=== PATIENT | female | born 1995 | race Caucasian/White ===

== ENCOUNTER 2017-08-27 17:15 | Emergency (ER) | payer OTHER ==
[~2017-08-27] VITALS: Ht 154.9 cm; Wt 53.5 kg
[~2017-08-27 17:15] MED LIST: AMOXICILLIN PO; AZITHROMYCIN250 MG PO; FLINTSTONES1 CTB PO; PHENERGAN 25MG.25 M1 PO; PRENATAL PLUS1 TA1 PO; SEPTRA DS 800 M1 TAB PO; TOPAMAX100 MG PO; TYLENOL ES500 M1 PO; ZOFRAN ODT4 MG PO; ZOFRAN4 MG PO
--- OUTSIDE RECORDS SUMMARY | 2017-08-27 17:23 | External Medical Summary Rpt | CCD ---
Author Author , ALMAS Organization ALMAS Address Unknown Phone [email or web address] Care Team Providers Care Ethics Manager Name Role Phone TAPIA CARMEN, TAPIA Unavailable Unavailable CARMEN TAPIA CARMEN, TAPIA Unavailable Unavailable CARMEN [facility] [place]available [place], [facility] Unavailable Unavailable [place] [place] ZONIA SHERITA, Unavailable Unavailable ZONIA SHERITA ZONIA SHERITA, Unavailable Unavailable ZONIA SHERITA Rashi Tapia MD, Unavailable Unavailable Rashi Kelly MD, Unavailable Unavailable Yunior Kelly MD [facility] ADOLFO SMITH, ADOLFO Unavailable Unavailable LUIS BROWN BEAAT, BROWN BEATA Unavailable Unavailable [facility] Unavailable Unavailable [place], [facility] Unavailable Unavailable [facility], [facility] Unavailable Unavailable INC, [facility], Unavailable Unavailable [facility] Daina Peter MD, Unavailable Unavailable Daina Peter MD [facility] Unavailable Unavailable [facility], [facility] Unavailable Unavailable [facility], [facility] Israel Camargo MD, Unavailable Unavailable Israel Camargo MD [facility] Unavailable Unavailable SERVICES, [facility] ANAT SHERITA, Unavailable Unavailable ANAT SHERITA ANAT SHERITA, Unavailable Unavailable ANAT SHERITA MULBERRY WILL, Unavailable Unavailable MULBERRY WILL MULBERRY WILL, Unavailable Unavailable MULBERRY WILL ISAAK R H, Unavailable Unavailable ISAAK R H ISAAK R H, Unavailable Unavailable ISAAK R H Unavailable Unavailable [facility] PICKLESIMER JR FERNIE, Unavailable Unavailable PICKLESIMER JR FERNIE PICKLESIMER JR FERNIE, Unavailable Unavailable [facility] FERN[facility] BUSTER CARTER, BUSTER Unavailable Unavailable EMMA SCIFRES ANG, SCIFRES Unavailable Unavailable ANG SCIFRES ANG, SCIFRES Unavailable Unavailable ANG KELLY SHERITA, KELLY SHERITA Unavailable Unavailable VERÓNICA WU, VERÓNICA Unavailable Unavailable JAZMINJostin WU, VERÓNICA Unavailable Unavailable [facility] Unavailable Unavailable DEPT [facility] Unavailable Unavailable [facility] ABDIAS [facility] Unavailable Unavailable Purpose Continuity of Care Document - 06-05-2011 through 2016 Problems Code Diagnosis DOS Provider Status V7231 ROUTINE 11-16-2014 [facility] GROUP EXAMINATION 462 462 ACUTE 12-26-2013 [place] PHARYNGITIS [facility] V2549 SURVEILLANC 12-08-2013 [facility] [place] CONTRACEPT [facility] METHOD V2689 OTHER 12-08-2013 [facility] SPECIFIED [facility] PROCREATIVE [facility] DEPT MANAGEMENT VIVIENNE 15547 CONDYLOMA 11-17-2013 PICKLESIMER ACUMINATUM JR FERNIE V255 INSERTION 11-17-2013 REGINA MORALES OF IMPLANTABLE SUBDERMAL CONTRACEPTI VE 599.0 599.0 URIN 11-16-2013 [place] TRACT [facility] INFECTION Hospital NOS 5990 URINARY 11-16-2013 [place] TRA[place] [facility] INFECTION INC SITE NOT SPECIFIED 625.3 625.3 11-16-2013 [place] DYSMENORRHE [facility] 6253 DYSMENORRHE 11-16-2013 [facility] 658.01 658.01 10-07-2013 [facility] R 664.01 664.01 DEL 10-07-2013 [place] W 1 DEG [facility] V27.0 V27.0 10-07-2013 [facility] LIVEBORN 650 NORMAL 10-05-2013 VERÓNICA SALCIDOF DELIVERY 98872 OLIGOHYDRAM 10-05-2013 [place] POWELL, [facility] DELIVERED INC 04960 FIRST-DEGRE 10-05-2013 [place] Mayen PERINEAL [facility] LACERATION INC WITH DELIVERY V270 OUTCOME OF 10-05-2013 [place] DELIVERY [facility] SINGLE INC LIVEBORN 83936 THREATENED 10-04-2013 REGINA MORALES PREMATURE LABOR ANTEPARTUM 39007 OLIGOHYDRAM 09-29-2013 REGINA MORALES NIOS, ANTEPARTUM V220 SUPERVISION 09-25-2013 REGINA MORALES OF NORMAL FIRST 44476 POOR 09-10-2013 REGINA MORALES GROWTH MGMT MOTH ANTPRTM COND/COMP 94968 ABN MAT 09-09-2013 [place] GLUCOSE [facility] TOLERANCE INC COMPL PG CB/PP UNS EOC 27432 PREMATURE 07-15-2013 SEPARATION DIAGNOSTICC OF PLACENTA ENTER ANTEPARTUM V2389 SUPERVISION 07-15-2013 OF OTHER DIAGNOSTICC HIGH-RISK ENTER 82513 HEMORRHAGE 07-14-2013 REGINA MORALES FROM PLACENTA PREVIA ANTEPARTUM 51937 UNSPECIFIED 07-14-2013 ANAT ANTEPARTUM SHERITA HEMORRHAGE ANTEPARTUM 37111 SPOTTING 07-14-2013 REGINA MORALES COMP ANTEPARTUM COND/COMP 27778 ABNORMAL 07-13-2013 REGINA MORALES MATERNAL GLUCOSE TOLERANCE ANTEPARTUM 60844 UNSPEC 07-11-2013 ZONIA HEMORRHAGE SHERITA EARLY ANTEPARTUM V221 SUPERVISION 07-11-2013 ZONIA OF OTHER SHERITA NORMAL V283 ENCOUNTER 05-27-2013 REGINA MORALES ROUTINE SCREEN MALFORMATIO N ULTRASONIC 41309 HORDEOLUM 05-19-2013 [facility] 24437 OTHER 03-12-2013 REGINA MORALES SPECIFED COMPLICATIO N ANTEPARTUM 460 ACUTE 02-19-2013 MULBERRY NASOPHARYNG WILL ITIS V016 CONTACT 02-17-2013 [place] SIN WITH OR HEALTH EXPOSURE TO [place] VENEREAL DISEASES 640.03 640.03 02-16-2013 [facility] 37361 THREATENED 02-16-2013 [place] , [facility] ANTEPARTUM INC 34439 UNSPEC 02-16-2013 [facility] EMERGENCY EARLY PG SERVICES UNSPEC EPIS CARE V7242 02-10-2013 [place] SIN EXAMINATION HEALTH OR TEST CENTER POSITIVE RESULT 01031 MIGRAINE 11-15-2012 [facility] W/O EMERGENCY INTRACT W/O SERVICES STATUS MIGRAINOSUS 4720 CHRONIC 11-11-2012 ISAAK R RHINITIS H V2541 SURVEILLANC 10-07-2012 [place] SIN E PREV HEALTH PRESCRIBED CENTER CONTRACEPT PILL V720 EXAMINATION 07-31-2012 SCIFRES ANG OF EYES AND VISION 5589 OTH&UNSPEC 05-26-2012 [place] NONINFECTIO [facility] US INC GASTROENTER ITIS&COLITI S 54478 OTHER 05-26-2012 [facility] [facility] FATIGUE INC 63621 NAUSEA WITH 05-26-2012 [place] VOMITING [facility] INC 7840 HEADACHE 05-08-2012 [facility] 18538 OTHER 04-18-2012 [facility] SPECIFIED PHYSICIANS CIRCULATORY [place] SYSTEM DISORDERS 7241 PAIN IN 04-18-2012 [facility] [address] ABDOMINAL 04-18-2012 LAB TOI PAIN, [facility] EPIGASTRIC HOLDINGS 7242 LUMBAGO 04-17-2012 [facility] 58282 VOMITING 04-17-2012 [facility] 0340 STREPTOCOCC 02-21-2012 MULBERRY AL SORE WILL THROAT 4619 ACUTE 11-27-2011 [facility] SINUSITIS, ASSOCIATES UNSPECIFIED 84147 NAUSEA 09-13-2011 [place] ALONE [facility] INC 2662 OTHER 06-05-2011 [facility] S V2509 OT GENERAL 06-05-2011 [facility] CNSL&ADVICE CENTER CONTRACEPT MANAGEMENT Allergies, Adverse Reactions, Alerts Type Drug Allergy Adverse Reaction to Substance Substance Reaction Severity NO KNOWN DRUG Unknown Unknown ALLERGIES Medications Na ND Rx Da Fi Fi Am Da Di Ph RX Ph St me C No te ll ll ou ys ag ar # ys at rm s nt no ma ic us Or Da si cy ia de te s n re d Sa 63 01 0 No li 80 -1 ne 70 3- Lo 10 20 ng Fl 07 14 er us 5 h Ac 10 ti ML ve Sy ri ng e IN 51 01 0 No DO 07 -1 ME 90 3- Lo TH 19 20 ng AC 02 14 er IN 0 Ac 25 ti ve MG CA PS UL E RICHARDSON 51 01 0 No LF 07 -1 AM 90 3- Lo ET 12 20 ng HO 82 14 er XA 0 ZO Ac LE ti -T ve MP DS TA BL ET DE 00 12 0 No XT 40 -0 RO 97 2- Lo SE 92 20 ng 90 13 er 5% 9 -L Ac R ti IV ve SO DAVDI TI ON [place] [address] 40 -0 AT 97 2- Lo ED 95 20 ng 30 13 er RI 9 NG Ac ER ti S ve IN JE CT IO N PI 11 12 0 No TO 11 -0 CI 11 2- Lo N 11 20 ng 30 13 13 er 3 UN Ac IT ti S/ ve LR 50 0M L IV PI 11 12 0 No TO 11 -0 CI 11 2- Lo N 11 20 ng 30 13 13 er 3 UN Ac IT ti S/ ve LR 50 0M L IV TY 50 12 0 No LE 58 -0 NO 00 2- Lo L 45 20 ng EX 10 13 er -S 3 TR Ac ti 50 ve [address] ET ON 00 12 0 No DA 64 -0 NS 16 2- Lo ET 08 20 ng RO 02 13 er N 5 HC Ac L ti 4 ve MG /2 ML AL DE 63 12 2 No RM 02 -0 OP 98 2- Lo [place] [address] 40 13 er 1 SP Ac RA ti Y ve Ib 62 12 2 No up 58 -0 ro 40 2- Lo fe 74 20 ng n 60 13 er 40 1 0M Ac G ti Ta ve bl et LA 20 12 2 No NO 45 -0 LI 18 2- Lo N 71 20 ng CR 22 13 er EA 6 M Ac 56 ti GM ve OX 00 12 2 No YC 40 -0 OD 60 2- Lo ON 55 20 ng E 26 13 er HC 2 L Ac 5 ti MG ve TA BL ET A. 50 12 2 No E. 28 -0 R 93 2- Lo PA 25 20 ng DS 00 13 er 1 Ac ti ve Vital Signs 12-26-2013 23:20 Name Value Interpretat Reference Comment ion Range BP 57 mm[Hg] Diastolic BP Systolic 117 mm[Hg] Heart 91 /min Rate/Pulse O2% 96 % Respiratory 20 /min Rate 12-26-2013 22:38 Name Value Interpretat Reference Comment ion Range BP 69 mm[Hg] Diastolic BP Systolic 116 mm[Hg] Heart 99 /min Rate/Pulse O2% 96 % Respiratory 20 /min Rate 11-16-2013 22:34 Name Value Interpretat Reference Comment ion Range BP 60 mm[Hg] Diastolic BP Systolic 99 mm[Hg] Heart 68 /min Rate/Pulse O2% 100 % Respiratory 20 /min Rate 11-16-2013 21:09 Name Value Interpretat Reference Comment ion Range BP 70 mm[Hg] Diastolic BP Systolic 114 mm[Hg] Heart 90 /min Rate/Pulse O2% 99 % Respiratory 20 /min Rate 10-05-2013 10:30 Name Value Interpretat Reference Comment ion Range Weight 152 [lb_av] Measured Weight 68.947 kg Measured 02-16-2013 02:01 Name Value Interpretat Reference Comment ion Range Body 98.3 [degF] Temperature BP 59 mm[Hg] Diastolic BP Systolic 102 mm[Hg] Heart 83 /min Rate/Pulse O2% 99 % Respiratory 20 /min Rate 02-16-2013 01:07 Name Value Interpretat Reference Comment ion Range Heart 75 /min Rate/Pulse O2% 98 % Respiratory 20 /min Rate 02-16-2013 00:02 Name Value Interpretat Reference Comment ion Range BP 59 mm[Hg] Diastolic BP Systolic 102 mm[Hg] Results Labs Lab Lab Date Result Refere Interp Status Commen Order Detail nces retati t Range on STREP SCREEN (RAPID) (12-26-2013 22:05) STREP NEGATIV complet SCREEN 014 E ed (RAPID) 22:05 COMPREHENSIVE METABOLIC PANEL (11-16-2013 20:35) Glucose 86 74-106 complet 014 mg/dL ed Bld-mCn 20:35 c BUN 10 7-18 complet Bld-mCn 014 mg/dL ed c 20:35 Creat 0.7 0.6-1.0 complet SerPl-m 014 mg/dL ed Cnc 20:35 Creat 111 50-200 complet Cl 014 ML/MIN ed predict 20:35 ed SerPl C-G-vRa te GFR/BSA 108 59- complet .pred 014 ML/MIN ed SerPl 20:35 Schwart z-vRate Sodium 138 136-145 complet SerPl-s 014 mmoL/L ed Cnc 20:35 Potassi 3.7 3.5-5.1 complet um 014 mmoL/L ed SerPl-s 20:35 Cnc Chlorid 101 98-107 complet e 014 mmoL/L ed SerPl-s 20:35 Cnc CO2 28 21.0-32 complet SerPl-s 014 mmoL/L .0 ed Cnc 20:35 Calcium 8.8 8.5-10. complet 014 mg/dL 1 ed SerPl-m 20:35 Cnc Prot 7.7 6.4-8.2 complet SerPl-m 014 gm/dL ed Cnc 20:35 Albumin 3.8 3.4-5.0 complet 014 gm/dL ed SerPl-m 20:35 Cnc Globuli 3.9 1.3-3.2 complet n 014 gm/dL ed Ser-mCn 20:35 c Albumin 1.0 UNK 1.1-1.8 complet /Glob 014 ed SerPl-m 20:35 Rto Bilirub 0.2 0.2-1.0 complet 014 mg/dL ed SerPl-m 20:35 Cnc AST 15 U/L 15-37 complet SerPl-c 014 ed Cnc 20:35 ALT 24 U/L 30-65 complet SerPl-c 014 ed Cnc 20:35 ALP 96 U/L 50-136 complet SerPl-c 014 ed Cnc 20:35 CBC with AUTO DIFF (11-16-2013 20:35) WBC # 11-16- 7.3 4.5-13. complet Bld 014 K/MM3 0 ed Auto 20:35 RBC # 4.71 4.2-5.4 complet Bld 014 M/mm3 ed Auto 20:35 Hgb 12.7 12.2-16 complet Bld-mCn 014 g/dL .2 ed c 20:35 Hct Fr 38.7 % 37.0-47 complet Bld 014 .0 ed 20:35 MCV RBC 82.1 fl 82.2-97 complet 014 .8 ed 20:35 MCH RBC 26.9 pg 27-31.2 complet Qn 014 ed Auto 20:35 MEAN 32.7 31.8-35 complet CORPUSC 014 g/dl .4 ed ULAR 20:35 HGB CONC RDW RBC 16.6 % 11.5-17 complet Auto 014 .5 ed 20:35 Platele 282 142-424 complet t Bld 014 K/mm3 ed Ql 20:35 Manual MEAN 7.9 fl 7.4-10. complet PLATELE 014 4 ed T 20:35 VOLUME Granulo 45.4 % 37.0-80 complet cytes 014 .0 ed Fr Bld 20:35 Auto LYMPH % 40.5 % 10-50.0 complet 014 ed 20:35 Monocyt 8.5 % 1.7-9.3 complet es Fr 014 ed Bld 20:35 Auto Eosinop 11-16- 4.9 % 0.1-12. complet hil Fr 014 0 ed Bld 20:35 Auto Basophi 11-16-2 0.7 % 0.1-2.0 complet ls Fr 014 ed Bld 20:35 Auto Granulo 3.3 1.8-7.8 complet cytes # 014 K/mm3 ed Bld 20:35 Auto Lymphoc 11-16- 2.9 0.7-4.5 complet ytes Fr 014 K/mm3 ed Bld 20:35 Auto Monocyt 11-16-2 0.6 0.1-1.0 complet es # 014 K/mm3 ed Bld 20:35 Auto Eosinop 0.4 0.0-0.4 complet hil # 014 K/mm3 ed Bld 20:35 Auto Basophi 11-16- 0.1 0-0.2 complet ls # 014 K/MM3 ed Bld 20:35 Auto B-HCG Ur Ql (11-16-2013 20:20) B-HCG NEGATIV NEG complet Ur Ql 014 E ed 20:20 URINALYSIS/COMPLETE (11-16-2013 20:20) URINE RED YELLOW complet COLOR 014 ed 20:20 URINE CLOUDY CLEAR complet APPEARA 014 ed NCE 20:20 URINE NEGATIV NEG complet GLUCOSE 014 E ed - 20:20 DIPSTIC K URINE NEGATIV NEG complet BILIRUB 014 E ed IN - 20:20 DIPSTIC K URINE 1+ NEG complet KETONE 014 mg/dL ed 20:20 URINE 11-16- 1.020 1.005-1 complet SPECIFI 014 UNK .030 ed C 20:20 GRAVITY URINE 3+ NEG complet BLOOD 014 ed 20:20 URINE 5.0 UNK 5.0-8.5 complet PH 014 ed 20:20 URINE 3+ NEG complet PROTEIN 014 mg/dL ed - 20:20 DIPSTIC K URINE 4.0 NEG complet UROBILI 014 E.U./dL ed NOGEN - 20:20 DIPSTIC K URINE POSITIV NEG complet NITRATE 014 E ed - 20:20 DIPSTIC K URINE 2+ NEG complet LEUK 014 ed ESTERAS 20:20 E URINE TNTC 0 complet RBC 014 rbc/hpf ed 20:20 URINE 2 OCC O complet WBC 014 wbc/hpf ed 20:20 URINE 1+ O complet BACTERI 014 ed A 20:20 pH BldCo (10-05-2013 21:02) pH 7.30 7.35-7. complet BldCo 013 UNK 45 ed 21:02 URINALYSIS/COMPLETE (10-05-2013 08:39) URINE YELLOW YELLOW complet COLOR 013 ed 08:39 URINE SL CLEAR complet APPEARA 013 CLOUDY ed NCE 08:39 URINE NEGATIV NEG complet GLUCOSE 013 E ed - 08:39 DIPSTIC K URINE NEGATIV NEG complet BILIRUB 013 E ed IN - 08:39 DIPSTIC K URINE NEGATIV NEG complet KETONE 013 E mg/dL ed 08:39 URINE 1.020 1.005-1 complet SPECIFI 013 UNK .030 ed C 08:39 GRAVITY URINE NEGATIV NEG complet BLOOD 013 E ed 08:39 URINE 7.0 UNK 5.0-8.5 complet PH 013 ed 08:39 URINE NEGATIV NEG complet PROTEIN 013 E mg/dL ed - 08:39 DIPSTIC K URINE 0.2 NEG complet UROBILI 013 E.U./dL ed NOGEN - 08:39 DIPSTIC K URINE 2 NEGATIV NEG complet NITRATE 013 E ed - 08:39 DIPSTIC K URINE 2 NEGATIV NEG complet LEUK 013 E ed ESTERAS 08:39 E URINE 3-5 O complet WBC 013 wbc/hpf ed 08:39 URINE 5-10 0-5 complet SQUAMOU 013 #/hpf ed S CELLS 08:39 URINE TRACE O complet BACTERI 013 ed A 08:39 URINE 2 1+ OCC complet MUCUS 013 ed 08:39 CBC with AUTO DIFF (10-05-2013 05:30) WBC # 12-02-2 7.5 4.5-13. complet Bld 013 K/MM3 0 ed Auto 05:30 RBC # 12-02-2 4.12 4.2-5.4 complet Bld 013 M/mm3 ed Auto 05:30 Hgb 12-02-2 11.5 12.2-16 complet Bld-mCn 013 g/dL .2 ed c 05:30 Hct Fr --2 34.9 % 37.0-47 complet Bld 013 .0 ed 05:30 MCV RBC --2 84.8 fl 82.2-97 complet 013 .8 ed 05:30 MCH RBC 10-05-2 28.0 pg 27-31.2 complet Qn 013 ed Auto 05:30 MEAN 10-05-2 33.1 31.8-35 complet CORPUSC 013 g/dl .4 ed ULAR 05:30 HGB CONC RDW RBC 10-05-2 15.3 % 11.5-17 complet Auto 013 .5 ed 05:30 Platele --2 274 142-424 complet t Bld 013 K/mm3 ed Ql 05:30 Manual MEAN 10-05-2 7.7 fl 7.4-10. complet PLATELE 013 4 ed T 05:30 VOLUME Granulo 10-05-2 62.6 % 37.0-80 complet cytes 013 .0 ed Fr Bld 05:30 Auto LYMPH % -02-2 28.1 % 10-50.0 complet 013 ed 05:30 Monocyt -02-2 7.7 % 1.7-9.3 complet es Fr 013 ed Bld 05:30 Auto Eosinop -02-2 1.3 % 0.1-12. complet hil Fr 013 0 ed Bld 05:30 Auto Basophi 12-02-2 0.3 % 0.1-2.0 complet ls Fr 013 ed Bld 05:30 Auto Granulo 12-02-2 4.7 1.8-7.8 complet cytes # 013 K/mm3 ed Bld 05:30 Auto Lymphoc -02-2 2.1 0.7-4.5 complet ytes Fr 013 K/mm3 ed Bld 05:30 Auto Monocyt 12-02-2 0.6 0.1-1.0 complet es # 013 K/mm3 ed Bld 05:30 Auto Eosinop -02-2 0.1 0.0-0.4 complet hil # 013 K/mm3 ed Bld 05:30 Auto Basophi 10-05-2 0.0 0-0.2 complet ls # 013 K/MM3 ed Bld 05:30 Auto BASIC METABOLIC PANEL (02-16-2013 00:40) Glucose 02-16- 69 74-106 complet 013 mg/dL ed Bld-mCn 00:40 c BUN 02-16-2 10 7-18 complet Bld-mCn 013 mg/dL ed c 00:40 Creat 02-16-2 0.6 0.6-1.0 complet SerPl-m 013 mg/dL ed Cnc 00:40 ESTIMAT 02-16-2 106 50-200 complet ED 013 ML/MIN ed CREATIN 00:40 INE CLEARAN CE GFR 129 59- complet (ESTIMA 013 ML/MIN ed RODOLFO) 00:40 Sodium 02-16-2 137 136-145 complet SerPl-s 013 mmoL/L ed Cnc 00:40 Potassi 3.4 3.5-5.1 complet um 013 mmoL/L ed SerPl-s 00:40 Cnc Chlorid 02-16- 103 98-107 complet e 013 mmoL/L ed SerPl-s 00:40 Cnc CO2 02-16-2 28 21.0-32 complet SerPl-s 013 mmoL/L .0 ed Cnc 00:40 Calcium 02-16-2 8.5 8.5-10. complet 013 mg/dL 1 ed SerPl-m 00:40 Cnc B-HCG SerPl EIA 3rd IS-aCnc (02-16-2013 00:40) B-HCG 02-16-2 45145.9 complet SerPl 013 mIU/ML ed EIA 3rd 00:40 IS-aCnc CBC with AUTO DIFF (02-16-2013 00:40) WBC # -15-2 7.4 4.5-13. complet Bld 013 K/MM3 0 ed Auto 00:40 RBC # -15-2 4.36 4.2-5.4 complet Bld 013 M/mm3 ed Auto 00:40 Hgb 02-16-2 12.9 12.2-16 complet Bld-mCn 013 g/dL .2 ed c 00:40 Hct Fr 15-2 38.2 % 37.0-47 complet Bld 013 .0 ed 00:40 MCV RBC 15-2 87.5 fl 82.2-97 complet 013 .8 ed 00:40 MCH RBC 15-2 29.6 pg 27-31.2 complet Qn 013 ed Auto 00:40 MEAN -15-2 33.9 31.8-35 complet CORPUSC 013 g/dl .4 ed ULAR 00:40 HGB CONC RDW RBC 15-2 13.1 % 11.5-17 complet Auto 013 .5 ed 00:40 Platele -15-2 227 142-424 complet t Bld 013 K/mm3 ed Ql 00:40 Manual MEAN 15-2 7.4 fl 7.4-10. complet PLATELE 013 4 ed T 00:40 VOLUME Granulo 04-15-2 50.0 % 37.0-80 complet cytes 013 .0 ed Fr Bld 00:40 Auto LYMPH % 04-15-2 38.2 % 10-50.0 complet 013 ed 00:40 Monocyt 04-15-2 7.4 % 1.7-9.3 complet es Fr 013 ed Bld 00:40 Auto Eosinop 04-15-2 3.8 % 0.1-12. complet hil Fr 013 0 ed Bld 00:40 Auto Basophi 04-15-2 0.7 % 0.1-2.0 complet ls Fr 013 ed Bld 00:40 Auto Granulo 04-15-2 3.7 1.8-7.8 complet cytes # 013 K/mm3 ed Bld 00:40 Auto Lymphoc 04-15-2 2.8 0.7-4.5 complet ytes Fr 013 K/mm3 ed Bld 00:40 Auto Monocyt 04-15-2 0.5 0.1-1.0 complet es # 013 K/mm3 ed Bld 00:40 Auto Eosinop 04-15-2 0.3 0.0-0.4 complet hil # 013 K/mm3 ed Bld 00:40 Auto Basophi 04-15-2 0.1 0-0.2 complet ls # 013 K/MM3 ed Bld 00:40 Auto URINALYSIS/COMPLETE (02-16-2013 00:35) URINE 04-15-2 YELLOW YELLOW complet COLOR 013 ed 00:35 URINE 04-15-2 CLEAR CLEAR complet APPEARA 013 ed NCE 00:35 URINE 04-15-2 NEGATIV NEG complet GLUCOSE 013 E ed - 00:35 DIPSTIC K URINE 04-15-2 NEGATIV NEG complet BILIRUB 013 E ed IN - 00:35 DIPSTIC K URINE 04-15-2 NEGATIV NEG complet KETONE 013 E mg/dL ed 00:35 URINE 04-15-2 Greater 1.005-1 complet SPECIFI 013 than .030 ed C 00:35 or GRAVITY equal to 1.030 URINE 04-15-2 1+ NEG complet BLOOD 013 ed 00:35 URINE 04-15-2 6.0 UNK 5.0-8.5 complet PH 013 ed 00:35 URINE 04-15-2 NEGATIV NEG complet PROTEIN 013 E mg/dL ed - 00:35 DIPSTIC K URINE 04-15-2 0.2 NEG complet UROBILI 013 E.U./dL ed NOGEN - 00:35 DIPSTIC K URINE 04-15-2 NEGATIV NEG complet NITRATE 013 E ed - 00:35 DIPSTIC K URINE 04-15-2 TRACE NEG complet LEUK 013 ed ESTERAS 00:35 E URINE 04-15-2 5-10 0 complet RBC 013 rbc/hpf ed 00:35 URINE 04-15-2 3-5 O complet WBC 013 wbc/hpf ed 00:35 URINE 04-15-2 20-50 0-5 complet SQUAMOU 013 #/hpf ed S CELLS 00:35 URINE 04-15-2 TRACE O complet BACTERI 013 ed A 00:35 URINE 04-15-2 TRACE NONE complet AMORPH 013 ed SEDIMEN 00:35 T Procedures Procedure DOS Code Location Performer Comment ANTIBODY 33234 COMBINED COMBINED CHLAMYDIA 5 PHYSICIAN PHYSICIAN S LA S LA CUL 96826 COMBINED COMBINED PRSMPTV 5 PHYSICIAN PHYSICIAN PTHGNC S LA S LA ORGANISM SCRN W/COLONY ESTIMJ IADNA 56351 [facility] 4 [facility] DEPT TRACHOMAT VIVIENNE VIVIENNE IS AMPLIFIED PROBE TQ CONTRACEP A4267 [facility] TIVE 4 [facility] DEPT CONDOM VIVIENNE VIVIENNE MALE EACH IADNA 63057 [facility] NEISSERIA 4 [facility]PT GONORRHOE VIVIENNE VIVIENNE [place] [address] PICKLESIM PICKLESIM SURG 4 ER JR FERNIE ER JR FERNIE PATHOLOGY GROSS&LUIS ROSCOPIC EXAM ETONOGEST J7307 REGINA TAPIA REL 4 CARMEN CARMEN CNTRACPT IMPL SYS INCL IMPL & SPL INSJ 43426 REGINA TAPIA NON-BIODE 4 CARMEN CARMEN GRADABLE DRUG DELIVERY IMPLANT URINE 59909 REGINA TAPIA 4 CARMEN CARMEN TEST VISUAL COLOR CMPRSN METHS URINE 16976 [facility] [place] TEST INC INC VISUAL COLOR CMPRSN METHS URNLS DIP 07584 [facility] STICK/TAB INC INC LET REAGENT AUTO MICROSCOP Y CULTURE 51907 [facility] BACTERIAL 4 [facility] INC INC QUANTTATI VE COLONY COUNT URINE CULTURE 61147 [facility] BCT [facility] ISOL&PRSM INC INC PTV ID ISOLATE EA URINE BLOOD 44788 [facility] COUNT 4 [facility] COMPLETE INC INC AUTO&AUTO DIFRNTL WBC COMPREHEN 13658 [facility] SIVE [facility] METABOLIC INC INC PANEL SUSCEPTIB 40055 [facility] LTY STDY [facility] ANTIMICRB INC INC IAL MICRO/AGA R DILUTJ VAGINAL 03097 REGINA [facility] DELIVERY 3 CARMEN CARMEN ONLY W/POSTPAR KRYSTIAN CARE REPAIR OF 7569 [facility] OTHER [facility] CURRENT INC INC OBSTETRIC LACERATIO N NEURAXIAL 10122 [facility] 3 JAZMIN JAZMIN ANALG/ANE S PLND VAGINAL DELIVERY 41930 RE[facility] NONSTRESS 3 [facility] CARMEN TEST 74325 [facility] NONSTRESS 3 [facility]MEN [facility] TEST DOPPLER 47232 RE[facility] VELOCIMET 3 CARMEN CARMEN RY UMBILICAL ARTERY US PREG 90842 [facility] UTERUS 3 CARMEN CARMEN REAL TIME F/U TRNSABDL PER FETUS 57840 [facility] BIOPHYSIC 3 CARMEN CARMEN AL PROFILE W/O NON-STRES S TESTING 46631 [facility] BIOPHYSIC 3 CARMEN CARMEN AL PROFILE W/O NON-STRES S TESTING DOPPLER 44810 [facility] VELOCIMET 3 CARMEN CARMEN RY UMBILICAL ARTERY US PREG 22928 [facility] UTERUS 3 CARMEN CARMEN REAL TIME W/IMAGE DCMTN TRANSVAG DOPPLER 72144 [facility] VELOCIMET 3 CARMEN CARMEN RY UMBILICAL ARTERY 18368 [facility] BIOPHYSIC 3 CARMEN CARMEN AL PROFILE W/O NON-STRES S TESTING US PREG 05823 [facility] UTERUS 3 CARMEN CARMEN REAL TIME F/U TRNSABDL PER FETUS EVAL C/V 05154 [facility] AMNIOTIC 3 [facility] FLUID INC INC PROTEIN QUAL EA SPECIMEN 88114 [facility] NONSTRESS 3 CARMEN CARMEN TEST BLOOD 69484 [facility] COUNT 3 [facility] COMPLETE INC INC AUTO&AUTO DIFRNTL WBC URNLS DIP 69336 [facility] STICK/TAB INC INC LET REAGENT AUTO MICROSCOP Y BASIC 95029 [facility] METABOLIC 3 [facility] PANEL INC INC CALCIUM TOTAL CUL BACT 12171 COMBINED COMBINED XCPT 3 PHYSICIAN PHYSICIAN URINE S LA S LA BLOOD/STO OL AEROBIC ISOL DOPPLER 37585 [facility] VELOCIMET 3 CARMEN CARMEN RY UMBILICAL ARTERY 34259 [facility] BIOPHYSIC 3 CARMEN CARMEN AL PROFILE W/O NON-STRES S TESTING US PREG 71764 [facility] UTERUS 3 CARMEN CARMEN REAL TIME F/U TRNSABDL PER FETUS GLUCOSE 16094 [facility] TOLERANCE 3 [facility] TEST GTT INC INC [facility] 42061 ANAT DISCHARGE 3 SHERITA DAY DIAGNOSTI MANAGEMEN CCENTER T 30 MIN/< SBSQ 74162 [facility] 3 SHERITA CARE/DAY DIAGNOSTI 15 CCENTER MINUTES US PREG 99071 REGINA [facility] UTERUS 3 CARMEN CARMEN REAL TIME F/U TRNSABDL PER FETUS US PREG 61795 [facility] UTERUS 3 SHERITA SHERITA W/DETAIL BRITT 1ST GESTATION 48899 REGINA [facility] BIOPHYSIC 3 CARMEN CARMEN AL PROFILE W/O NON-STRES S TESTING GLUCOSE 74437 RE[facility] TOLERANCE 3 CARMEN CARMEN TEST GTT 3 SPECIMENS THERAPEUT 41959 [facility] IC 3 [facility] PROPHYLAC INC INC TIC/DX INJECTION SUBQ/IM THERAPEUT 89396 [facility] IC 3 [facility] PROPHYLAC INC INC TIC/DX INJECTION SUBQ/IM US PREG 02404 [facility] UTERUS 3 [facility] REAL TIME INC INC W/IMAGE DCMTN TRANSVAG 00146 [facility] NONSTRESS [facility] URNLS DIP 09392 [facility] STICK/TAB INC INC LET REAGENT AUTO MICROSCOP Y 75081 [facility] BIOPHYSIC 3 SHERITA SHERITA AL PROFILE NON-STRES S TESTING 83512 [facility] BIOPHYSIC 3 [facility] HOSP AL INC INC PROFILE W/O NON-STRES S TESTING URNLS DIP 14896 [facility] 3 [facility] STICK/TAB INC INC LET REAGENT AUTO MICROSCOP Y 39927 [facility] [place] NONSTRESS 3 [facility] TEST INC INC US PREG 88444 REGINA TAPIA UTERUS 3 CARMEN CARMEN AFTER 1ST TRIMEST 1/ GESTATION ALPHA-FET 07657 [facility] [place] OPROTEIN 3 [facility] SERUM INC INC GONADOTRO 50827 [facility] [place] PIN 3 [facility] CHORIONIC [place] [address] [facility] ESTRIOL 3 [facility] INC INC US PREG 44123 REGINA TAPIA UTERUS 3 CARMEN CARMEN REAL TIME W/IMAGE DCMTN TRANSVAG BLOOD 70585 MULBERRY MULBERRY COUNT 3 WILL WILL COMPLETE AUTO&AUTO DIFRNTL WBC IAADIADOO 71466 MULBERRY MULBERRY 3 WILL WILL STREPTOCO CCUS GROUP A URNLS DIP 90139 [facility] 3 [facility] STICK/TAB INC INC LET REAGENT AUTO MICROSCOP Y BLOOD 15980 [facility] [place] COUNT 3 [facility] COMPLETE INC INC AUTO&AUTO DIFRNTL WBC GONADOTRO 12078 [facility] [place] PIN 3 [facility] CHORIONIC INC INC QUANTITAT SELVIN BASIC 01243 [facility] METABOLIC 3 [facility] PANEL INC INC CALCIUM TOTAL URINE 00002 [facility] [place] 3 [facility] CENTER VISUAL COLOR CMPRSN METHS WET Q0111 L[facility] [place] UMAIR 3 [facility] IN[facility] PREP CENTER CENTER VAGINAL CERV/SKIN SPECIMENS IADNA 12006 LUD[facility] [place] CHLAMYDIA 3 [facility] LEGGETT TRACHOMAT IS AMPLIFIED PROBE TQ SMR PRIM 75768 LUD[facility]INA [facility] SRC WET [facility] NFCT AGT CONTRACEP A4267 [facility] [place] TIVE 3 [facility] SU[facility] CENTER CONDOM MALE EACH IADNA 96274 L[facility] [place] NEISSERIA 3 [facility] GONORRHOE AE AMPLIFIED PROBE TQ URINE 09989 [facility] 3 [facility] TEST INC INC VISUAL COLOR CMPRSN METHS THERAPEUT 41213 [facility] [place] IC 3 [facility] PROPHYLAC INC INC TIC/DX INJECTION SUBQ/IM IAADIADOO 29869 ISAAK ISAAK 3 R H R H STREPTOCO CCUS GROUP A CONTRACEP A4267 L[facility] [place] TIVE 2 [facility] CENTER CONDOM MALE EACH IADNA 49457 L[facility] [place] NEISSERIA 2 [facility] GONORRHOE AE AMPLIFIED PROBE TQ IADNA 89077 L[facility] [place] CHLAMYDIA 2 [facility] TRACHOMAT IS AMPLIFIED PROBE TQ FRAMES V2020 SCIFRES SCIFRES PURCHASES 2 ANG ANG 1 VISN V2103 SCIFRES SCIFRES PLANO 2 ANG ANG TO+/-4.00 D SPHER 0.12-2.00 D CYL EA DETERMINA 65277 SCIFRES SCIFRES TION 2 ANG ANG REFRACTIV E STATE FITTING 60829 SCIFRES SCIFRES SPECTACLE 2 ANG ANG S XCPT APHAKIA MONOFOCAL VISION V2799 SCIFRES SCIFRES ITEM OR 2 ANG ANG SERVICE MISCELLAN EOUS OPHTH 41405 SCIFRES SCIFRES MEDICAL 2 ANG ANG XM&EVAL COMPRHNSV ESTAB PT 1/> COMPREHEN 13050 L[facility] SIVE 2 [facility] [place] [address] L[facility] [place] INFUSION 2 [facility] THERAPY/P INC INC ROPHYLAXI S /DX 1ST TO 1 HR THERAPEUT 81392 [facility] [place] IC 2 [facility] INJECTION INC INC IV PUSH EACH NEW DRUG URINE 63762 [facility] 2 [facility] TEST INC INC VISUAL COLOR CMPRSN METHS BLOOD 11145 [facility] [place] COUNT 2 [facility] COMPLETE INC INC AUTO&AUTO DIFRNTL WBC URNLS DIP 34515 [facility] 2 [facility] STICK/TAB INC INC LET REAGENT AUTO MICROSCOP Y CULTURE 32534 [facility] [place] BACTERIAL 2 [facility] INC INC QUANTTATI VE COLONY COUNT URINE CULTURE 05924 COMBINED COMBINED BACTERIAL 2 PHYSICIAN PHYSICIAN S LA S LA QUANTTATI VE COLONY COUNT URINE THROMBOPL 79266 COMBINED COMBINED ASTIN 2 PHYSICIAN PHYSICIAN TIME S LA S LA PARTIAL PLASMA/[place] [address] LAB TOI LAB TOI LIPASE 2 MAGDALENA MAGDALENA [employer] COMPREHEN 58611 COMBINED COMBINED SIVE 2 PHYSICIAN PHYSICIAN [place] [address] COMBINED COMBINED AMYLASE 2 PHYSICIAN PHYSICIAN S LA S LA URNLS DIP 33413 FAMILY FAMILY 2 CARE CARE STICK/TAB ASSOCIATE ASSOCIATE LET RGNT S S NON-AUTO W/O MICRSCP PROTHROMB 71284 FAMILY FAMILY IN TIME 2 CARE FERRY TERMINAL AGENT ASSOCIATE S S BLOOD 26992 FAMILY FAMILY COUNT 2 CARE CARE COMPLETE ASSOCIATE ASSOCIATE AUTO&AUTO S S DIFRNTL WBC BLOOD 89096 ISAAK ISAAK COUNT 2 R H R H COMPLETE AUTO&AUTO DIFRNTL WBC IAADIADOO 40802 MULBERRY MULBERRY 2 WILL WILL STREPTOCO CCUS GROUP A IAADIADOO 36136 MULBERRY MULBERRY 2 WILL WILL STREPTOCO CCUS GROUP A IADNA 45586 LUDIVINA [place] NEISSERIA 1 [facility] C[facility] GONORRHOE AE AMPLIFIED PROBE TQ CONTRACEP S4993 LUDIVINA [place] TIVE 1 [facility] CENTER CONTROL IADNA 04625 LUDIVINA [place] CHLAMYDIA 1 [facility] TRACHOMAT IS AMPLIFIED PROBE TQ URINE 71304 L[facility]INA [place] 1 [facility] TEST CENTER CENTER VISUAL COLOR CMPRSN METHS REPAIR OB 75.69 Rashi Tapia MD LACERATIO N NEC Encounters Encounter Start End Date Code Location Performer Type Date PERIODIC 38989 [facility] PREVENTIV 5 5 PHYSICIAN E MED EST S GROUP PATIENT 18-39 YRS Emergency LALO Peter MD (ER) 4 22:08 4 23:21 [facility] EMERGENCY 31299 L[facility] 4 4 [facility] DEPARTMEN INC T VISIT LOW/MODER SEVERITY EMERGENCY 37462 ABDIAS AREVALO 4 4 DEPARTMEN T VISIT MODERATE SEVERITY HOSPITAL [facility] - 4 4 [facility] OUTPATIEN INC T PERIODIC 29140 [facility] HLTH DEPT HLTH DEPT PATIENT VIVIENNE VIVIENNE 18-39 YRS Emergency LALO Ludivina Camargo MD (ER) 4 20:48 4 22:[facility] OUTPATIEN INC T EMERGENCY 04072 ADOLFO CAMARGO 4 4 [facility] DEPARTMEN T VISIT HIGH/URGE NT SEVERITY EMERGENCY 36293 [facility] 4 4 [facility] DEPARTMEN INC T VISIT MODERATE SEVERITY Inpatient HARDY Tapia MD (IN) 3 04:58 3 18:22 [facility] - 3 3 [facility] INPATIENT INC OFFICE 17214 REGINA TAPIA OUTPATIEN 3 3 CARMEN CARMEN T VISIT 15 MINUTES OFFICE 82965 TAPIA TAPIA OUTPATIEN 3 3 CARMEN CARMEN T VISIT 15 MINUTES OFFICE 41189 [facility]AP[facility] REGINA OUTPATIEN 3 3 CARMEN CARMEN T VISIT 15 MINUTES HOSPITAL [facility] - 3 3 [facility] OUTPATIEN INC T OFFICE 59062 [facility] TAPIA OUTPATIEN 3 3 CARMEN CARMEN T VISIT 15 MINUTES OFFICE 20177 [facility] TAPIA OUTPATIEN 3 3 CARMEN CARMEN T VISIT 15 MINUTES OFFICE 10738 [facility] TAPIA OUTPATIEN 3 3 CARMEN CARMEN T VISIT 15 MINUTES HOSPITAL [facility] - 3 3 [facility] OUTPATIEN INC T OFFICE 70804 REGINA TAPIA OUTPATIEN 3 3 CARMEN CARMEN T VISIT 15 MINUTES HOSPITAL [facility] - 3 3 [facility]IENT [facility] OFFICE 45266 REGINA TAPIA OUTPATIEN 3 3 CARMEN CARMEN T VISIT 5 MINUTES HOSPITAL [facility] - 3 3 [facility] OUTPATIEN INC T HOSPITAL [facility] - 3 3 [facility] OUTPATIEN INC T [facility]OSPITAL [facility] - 3 3 [facility] OUTPATIEN INC T OFFICE 99654 REGINA TAPIA OUTPATIEN 3 3 CARMEN CARMEN T VISIT 15 MINUTES OFFICE 59373 REGINA TAPIA OUTPATIEN 3 3 CARMEN CARMEN T VISIT 15 MINUTES OFFICE 11323 FAMILY OUTPATIEN 3 3 CARE T VISIT ASSOCIATE 15 S MINUTES HOSPITAL [facility] - 3 3 [facility] OUTPATIEN INC T OFFICE 40649 REGINA TAPIA OUTPATIEN 3 3 CARMEN CARMEN T VISIT 15 MINUTES OFFICE 24032 REGINA TAPIA OUTPATIEN 3 3 CARMEN CARMEN T VISIT 15 MINUTES OFFICE 44808 MULBERRY MULBERRY OUTPATIEN 3 3 WILL WILL T VISIT 15 MINUTES OFFICE 70882 LUDIVINA WEAVER 3 3 [facility] T VISIT CENTER CENTER 15 MINUTES Emergency LALO Kelly MD (ER) 3 00:01 3 02:07 [facility] F. EMERGENCY 74129 LUDIV[place] 3 3 [facility] DEPARTMEN INC T VISIT MODERATE SEVERITY EMERGENCY 19076 [facility] 3 3 EMERGENCY DEPARTMEN SERVICES T VISIT HIGH/URGE NT SEVERITY HOSPITAL [facility] - 3 3 [facility] OUTPATIEN INC T OFFICE 26347 LUDIVINA WEAVER 3 3 [facility] T VISIT CENTER CENTER 25 MINUTES HOSPITAL [facility] - 3 3 [facility] OUTPATIEN INC T EMERGENCY 71433 [facility] GOINS 3 3 EMERGENCY [facility] DEPARTMEN SERVICES T VISIT HIGH/URGE NT SEVERITY EMERGENCY 21302 [facility] 3 3 [facility] DEPARTMEN INC T VISIT LOW/MODER SEVERITY OFFICE 75855 ISAAK ISAAK OUTPATIEN 3 3 R H R H T VISIT 15 MINUTES PERIODIC 38071 [facility] [place] PREVENTIV 2 2 [facility] E MED EST CENTER CENTER PATIENT 18-39 YRS OFFICE 51974 ISAAK ISAAK OUTPATIEN 2 2 R H R H T VISIT 15 MINUTES HOSPITAL [facility] - 2 2 [facility] OUTPATIEN INC T EMERGENCY 58076 ADOLFO HERNANDEZEY 2 2 [facility] LUIS DEPARTMEN T VISIT HIGH/URGE NT SEVERITY OFFICE 44194 FAMILY OUTPATIEN 2 2 CARE T VISIT ASSOCIATE 25 S MINUTES OFFICE 20562 FAMILY OUTPATIEN 2 2 CARE T VISIT ASSOCIATE 25 S MINUTES OFFICE 94983 MULBERRY MULBERRY OUTPATIEN 2 2 WILL WILL T VISIT 15 MINUTES OFFICE 23371 MULBERRY MULBERRY OUTPATIEN 2 2 WILL WILL T VISIT 15 MINUTES OFFICE 25843 FAMILY ISAAK OUTPATIEN 2 2 CARE R H T VISIT ASSOCIATE 15 S MINUTES HOSPITAL [facility] - 1 1 [facility] OUTPATIEN INC T EMERGENCY 20416 BROWN BEATA BROWN BEATA 1 1 DEPARTMEN T VISIT HIGH/URGE NT SEVERITY EMERGENCY 26851 [facility] 1 1 [facility] DEPARTMEN INC T VISIT LIMITED/M INOR PROB OFFICE 20472 LUD[facility] [place] OUTPATIEN 1 1 [facility] HEALTH T VISIT CENTER CENTER 15 MINUTES PERIODIC 69255 LUD[facility] [place] PREVENTIV 1 1 [facility] HEALTH E MED EST CENTER CENTER PATIENT 12-17YRS
--- OUTSIDE RECORDS SUMMARY | 2017-08-27 17:23 | External Medical Summary Rpt | CCD ---
Author Author , ALMAS Organization ALMAS Address Unknown Phone [email or web address] Team Providers Care Electronic Security Technician Name Role Phone TAPIA CARMEN, TAPIA Unavailable [...] ADOLFO SMITH, ADOLFO Unavailable Unavailable LUIS BROWN BEATA, BROWN BEATA Unavailable Unavailable [facility] Unavailable Unavailable [place], [facility] Unavailable Unavailable [facility]ENTER, [facility] Unavailable Unavailable INC, [facility], Unavailable Unavailable [facility] Daina Peter MD, Unavailable Unavailable Daina Peter MD [facility] Unavailable Unavailable [facility], [facility] Unavailable Unavailable [facility], [facility] Israel Camargo MD, Unavailable Unavailable Israel Camargo MD [facility] Unavailable Unavailable SERVICES, [facility] ANAT SHERITA, Unavailable Unavailable ANAT SHERITA ANAT SHERITA, Unavailable Unavailable ANAT SHERITA MULBERRY WILL, Unavailable Unavailable MULBERRY WILL MULBERRY WILL, Unavailable Unavailable MULBERRY WILL ISAAK R H, Unavailable Unavailable ISAAK R H SIAAK R H, Unavailable Unavailable [facility]K R [facility] Unavailable Unavailable [facility] PICKLESIMER JR FERNIE, Unavailable Unavailable [facility] FERNIE PICKLESIMER JR FERNIE, Unavailable Unavailable [facility] BUSTER CARTER, BUSTER Unavailable Unavailable EMMA SCIFRES ANG, SCIFRES Unavailable Unavailable ANG SCIFRES ANG, SCIFRES Unavailable Unavailable ANG KELLY SHERITA, KELLY SHERITA Unavailable Unavailable VERÓNICA WU, VERÓNICA Unavailable Unavailable JAZMINJostin WU, VERÓNICA Unavailable Unavailable JAZMIN [facility] Unavailable Unavailable DEPT [facility] VIV[facility]NE [facility] Unavailable Unavailable [facility] VIVIENNE ABDIAS LAZO Unavailable Unavailable Purpose Continuity of Care Document - 06-05-2011 through 2016 Problems Code Diagnosis DOS Provider Status [id number] ROUTINE 11-16-2014 [facility] AL GROUP EXAMINATION 462 462 ACUTE 12-26-2013 [place] PHARYNGITIS [facility] V2549 SURVEILLANC 12-08-2013 [facility] E OTH [facility] DEPT CONTRACEPT [facility] METHOD V2689 OTHER 12-08-2013 [facility] SPECIFIED [facility] PROCREATIVE [facility] DEPT MANAGEMENT VIVIENNE 20853 CONDYLOMA 11-17-2013 [facility] ACUMIN[facility] JR FERNIE V255 INSERTION 11-17-2013 REGINA MORALES OF IMPLANTABLE SUBDERMAL CONTRACEPTI VE 599.0 599.0 URIN 11-16-2013 [place] TRACT [facility] INFECTION Hospital NOS 5990 URINARY 11-16-[address] [facility] INFECTION INC SITE NOT SPECIFIED 625.3 625.3 11-16-2013 [place] DYSMENORRHE [facility] 6253 DYSMENORRHE 11-16-2013 [facility] INC 658.01 658.01 10-07-2013 [facility] R 664.01 664.01 DEL 10-07-2013 Ludivina W 1 DEG [facility] V27.0 V27.0 10-07-2013 [facility] LIVEBORN 650 NORMAL 10-05-2013 VERÓNICA SALCIDOF DELIVERY 21484 OLIGOHYDRAM 10-05-2013 [place], [facility] DELIVERED INC 20026 FIRST-DEGRE 10-05-[address] [facility] LACERATION INC WITH DELIVERY V270 OUTCOME OF 10-05-[address] [facility] SINGLE INC LIVEBORN 66238 THREATENED 10-04-2013 REGINA MORALES PREMATURE LABOR ANTEPARTUM 06970 OLIGOHYDRAM 09-29-2013 REGINA MORALES NIOS, ANTEPARTUM V220 SUPERVISION 09-25-2013 REGINA MORALES OF NORMAL FIRST 19504 POOR 09-10-2013 REGINA MORALES GROWTH MGMT MOTH ANTPRTM COND/COMP 62642 ABN MAT 09-09-2013 [facility] GLUCOSE [facility] TOLERANCE INC COMPL PG CB/PP UNS EOC 41470 PREMATURE 07-15-2013 SEPARATION DIAGNOSTICC OF [place] ENTER ANTEPARTUM V2389 SUPERVISION 07-15-2013 OF OTHER DIAGNOSTICC HIGH-RISK ENTER 83011 HEMORRHAGE 07-14-2013 REGINA MORALES FROM PLACENTA PREVIA ANTEPARTUM 80486 UNSPECIFIED 07-14-2013 ANAT ANTEPARTUM SHERITA HEMORRHAGE ANTEPARTUM 79990 SPOTTING 07-14-2013 REGINA MORALES COMP ANTEPARTUM COND/COMP 46203 ABNORMAL 07-13-2013 REGINA MORALES MATERNAL GLUCOSE TOLERANCE ANTEPARTUM 45249 UNSPEC 07-11-2013 [facility] HEMORRHAGE SHERITA EARLY ANTEPARTUM V221 SUPERVISION 07-11-2013 [facility] OF OTHER SHERITA NORMAL V283 ENCOUNTER 05-27-2013 REGINA MORALES ROUTINE SCREEN MALFORMATIO N ULTRASONIC 01132 HORDEOLUM 05-19-2013 [facility] 95795 OTHER 03-12-2013 REGINA MORALES SPECIFED COMPLICATIO N ANTEPARTUM 460 ACUTE 02-19-2013 MULBERRY NASOPHARYNG WILL ITIS V016 CONTACT 02-17-2013 L[place] SIN WITH OR HEALTH EXPOSURE TO [place] VENEREAL DISEASES 640.03 640.03 02-16-2013 [facility] 46904 THREATENED 02-16-2013 [facility] , [facility] ANTEPARTUM INC 02128 UNSPEC 02-16-2013 [facility] EMERGENCY EARLY PG SERVICES UNSPEC EPIS CARE V7242 02-10-2013 [place] SIN EXAMINATION HEALTH OR TEST CENTER POSITIVE RESULT 14247 MIGRAINE 11-15-2012 [facility] W/O EMERGENCY INTRACT W/O SERVICES STATUS MIGRAINOSUS 4720 CHRONIC 11-11-2012 ISAAK R RHINITIS H V2541 SURVEILLANC 10-07-2012 [place] SIN E PREV HEALTH PRESCRIBED CENTER CONTRACEPT PILL V720 EXAMINATION 07-31-2012 SCIFRES ANG OF EYES AND VISION 5589 OTH&UNSPEC 05-26-2012 [facility] NONINFECTIO [facility] US INC GASTROENTER ITIS&COLITI S 74566 OTHER 05-26-2012 [facility]AISE AND [facility] FATIGUE INC 22399 NAUSEA WITH 05-26-2012 [place] VOMITING [facility] INC 7840 HEADACHE 05-08-2012 [facility] 48839 OTHER 04-18-2012 COMBINED SPECIFIED PHYSICIANS CIRCULATORY LA SYSTEM DISORDERS 7241 PAIN IN 04-18-2012 [place] [address] ABDOMINAL 04-18-2012 LAB TOI PAIN, [facility] 7242 LUMBAGO 04-17-2012 [facility] 85907 VOMITING 04-17-2012 [facility] 0340 STREPTOCOCC 02-21-2012 MULBERRY AL SORE WILL THROAT 4619 ACUTE 11-27-2011 [facility] UNSPECIFIED 46555 NAUSEA 09-13-2011 [facility] ALONE [facility] INC 2662 OTHER 06-05-2011 [facility] HEALTH DEFICIENCIE CENTER S V2509 OT GENERAL 06-05-2011 [facility] HEALTH CNSL&ADVICE CENTER CONTRACEPT MANAGEMENT [...] -L Ac R ti IV ve SO DAVID TI ON LA 00 12 0 No [...] EIA 3rd IS-aCnc (02-16-2013 00:40) B-HCG 02-16-2 38248.[address] 013 mIU/ML ed EIA 3rd [...] Procedure DOS Code Location Performer Comment ANTIBODY 43097 COMBINED COMBINED CHLAMYDIA 5 PHYSICIAN PHYSICIAN S LA S LA CUL 34296 COMBINED COMBINED PRSMPTV 5 PHYSICIAN PHYSICIAN PTHGNC S LA S LA ORGANISM SCRN W/COLONY ESTIMJ IADNA 62205 [facility] 4 [facility] DEPT [facility] DEPT TRACHOMAT VIVIENNE VIVIENNE IS AMPLIFIED PROBE TQ CONTRACEP A4267 [facility] TIVE [facility] DEPT CONDOM VIVIENNE VIVIENNE MALE EACH IADNA 69234 [facility] NEISSERIA 4 [facility] DEPT [facility] DEPT GONORRHOE VIVIENNE VIVIENNE [place] [address] PICKLESIM PICKLESIM SURG 4 ER JR FERNIE ER JR FERNIE PATHOLOGY GROSS&LUIS ROSCOPIC EXAM ETONOGEST J7307 REGINA TAPIA REL 4 CARMEN CARMEN CNTRACPT IMPL SYS INCL IMPL & SPL INSJ 45782 REGINA TAPIA NON-BIODE 4 CARMEN CARMEN GRADABLE DRUG DELIVERY IMPLANT URINE 40616 REGINA TAPIA 4 CARMEN CARMEN TEST VISUAL COLOR CMPRSN METHS URINE 32997 [facility] [place] 4 [facility] TEST INC INC VISUAL COLOR CMPRSN METHS URNLS DIP 31734 [facility] [place] 4 [facility] STICK/TAB INC INC LET REAGENT AUTO MICROSCOP Y CULTURE 32794 L[facility] [place] BACTERIAL 4 [facility] INC INC QUANTTATI VE COLONY COUNT URINE CULTURE 43529 [facility] [place] BCT 4 [facility] ISOL&PRSM INC INC PTV ID ISOLATE EA URINE BLOOD 67541 [facility] [place] COUNT 4 [facility] COMPLETE INC INC AUTO&AUTO DIFRNTL WBC COMPREHEN 19026 [facility] [place] SIVE 4 [facility] METABOLIC INC INC PANEL SUSCEPTIB 18981 [facility] [place] LTY STDY 4 [facility] ANTIMICRB INC INC IAL MICRO/AGA R DILUTJ VAGINAL 23597 REGINA TAPIA DELIVERY 3 CARMEN CARMEN ONLY W/POSTPAR KRYSTIAN CARE REPAIR OF 7569 L[facility] [place] OTHER 3 [facility] CURRENT INC INC OBSTETRIC LACERATIO N NEURAXIAL 01733 VERÓNICA SANCHES LABOR 3 JAZMIN JAZMIN ANALG/ANE S PLND VAGINAL DELIVERY 56666 REGINA TAPIA NONSTRESS 3 CARMEN CARMEN TEST 78342 REGINA TAPIA NONSTRESS 3 CARMEN CARMEN TEST DOPPLER 13592 REGINA TAPIA VELOCIMET 3 CARMEN CARMEN RY UMBILICAL ARTERY US PREG 67440 TAPIA TAPIA UTERUS 3 CARMEN CARMEN REAL TIME F/U TRNSABDL PER FETUS 94134 TAPIA TAPIA BIOPHYSIC 3 CARMEN CARMEN AL PROFILE W/O NON-STRES S TESTING 30412 TAPIA TAPIA BIOPHYSIC 3 CARMEN CARMEN AL PROFILE W/O NON-STRES S TESTING DOPPLER 08160 TAPIA TAPIA VELOCIMET 3 CARMEN CARMEN RY UMBILICAL ARTERY US PREG 37456 TAPIA TAPIA UTERUS 3 CARMEN CARMEN REAL TIME W/IMAGE DCMTN TRANSVAG DOPPLER 90724 TAPIA TAPIA VELOCIMET 3 CARMEN CARMEN RY UMBILICAL ARTERY 13788 TAPIA TAPIA BIOPHYSIC 3 CARMEN CARMEN AL PROFILE W/O NON-STRES S TESTING US PREG 72900 TAPIA TAPIA UTERUS 3 CARMEN CARMEN REAL TIME F/U TRNSABDL PER FETUS EVAL C/V 84351 L[facility] [place] AMNIOTIC 3 [facility] FLUID INC INC PROTEIN QUAL EA SPECIMEN 60542 TAPIA TAPIA NONSTRESS 3 CARMEN CARMEN TEST BLOOD 28870 [facility] [place] COUNT 3 [facility] COMPLETE INC INC AUTO&AUTO DIFRNTL WBC URNLS DIP 21813 [facility] [place] 3 [facility] STICK/TAB INC INC LET REAGENT AUTO MICROSCOP Y BASIC 75559 [facility] [place] METABOLIC 3 [facility] PANEL INC INC CALCIUM TOTAL CUL BACT 72491 COMBINED COMBINED XCPT 3 PHYSICIAN PHYSICIAN URINE S LA S LA BLOOD/STO OL AEROBIC ISOL DOPPLER 98580 TAPIA TAPIA VELOCIMET 3 CARMEN CARMEN RY UMBILICAL ARTERY 54056 TAPIA TAPIA BIOPHYSIC 3 CARMEN CARMEN AL PROFILE W/O NON-STRES S TESTING US PREG 92781 TAPIA TAPIA UTERUS 3 CARMEN CARMEN REAL TIME F/U TRNSABDL PER FETUS GLUCOSE 40902 L[facility] [place] TOLERANCE 3 [facility] TEST GTT INC INC 3 [facility] 37355 ANAT DISCHARGE 3 SHERITA DAY DIAGNOSTI MANAGEMEN CCENTER T 30 MIN/< SBSQ 62758 [facility] 3 SHERITA CARE/DAY DIAGNOSTI 15 CCENTER MINUTES US PREG 82093 REGINA TAPIA UTERUS 3 CARMEN CARMEN REAL TIME F/U TRNSABDL PER FETUS US PREG 65989 [facility] UTERUS 3 SHERITA SHERITA W/DETAIL BRITT 1ST GESTATION 78915 REGINA TAPIA BIOPHYSIC 3 CARMEN CARMEN AL PROFILE W/O NON-STRES S TESTING GLUCOSE 53975 REGINA TAPIA TOLERANCE 3 CARMEN CARMEN TEST GTT 3 SPECIMENS THERAPEUT 29348 L[facility] [place] IC 3 [facility] PROPHYLAC INC INC TIC/DX INJECTION SUBQ/IM THERAPEUT 50149 L[facility] [place] IC 3 [facility] PROPHYLAC INC INC TIC/DX INJECTION SUBQ/IM US PREG 67695 L[facility] [place] UTERUS 3 [facility] REAL TIME INC INC W/IMAGE DCMTN TRANSVAG 58857 [facility] TAPIA NONSTRESS 3 HEALTH CARMEN TEST CLINIC OF FRDE URNLS DIP 45931 [facility] [place] 3 [facility] STICK/TAB INC INC LET REAGENT AUTO MICROSCOP Y 50129 ZONIA ZONIA BIOPHYSIC 3 SHERITA SHERITA AL PROFILE NON-STRES S TESTING 51099 [facility] [place] BIOPHYSIC 3 [facility] AL INC INC PROFILE W/O NON-STRES S TESTING URNLS DIP 50423 [facility] [place] 3 [facility] STICK/TAB INC INC LET REAGENT AUTO MICROSCOP Y 02141 [facility] [place] NONSTRESS 3 [facility] TEST INC INC US PREG 94624 REGINA TAPIA UTERUS 3 CARMEN CARMEN AFTER 1ST TRIMEST 1/ GESTATION ALPHA-FET 31890 [facility] [place] OPROTEIN 3 [facility] SERUM INC INC GONADOTRO 11812 LUD[facility] [place] PIN 3 [facility] CHORION[place] [address] L[facility] [place] ESTRIOL 3 [facility] INC INC US PREG 27291 REGINA TAPIA UTERUS 3 CARMEN CARMEN REAL TIME W/IMAGE DCMTN TRANSVAG BLOOD 84510 MULBERRY MULBERRY COUNT 3 WILL WILL COMPLETE AUTO&AUTO DIFRNTL WBC IAADIADOO 30735 MULBERRY MULBERRY 3 WILL WILL STREPTOCO CCUS GROUP A URNLS DIP 96122 [facility] [place] 3 [facility] STICK/TAB INC INC LET REAGENT AUTO MICROSCOP Y BLOOD 64734 L[facility] [place] COUNT 3 [facility] COMPLETE INC INC AUTO&AUTO DIFRNTL WBC GONADOTRO 39781 LUD[facility] [place] PIN 3 [facility] CHORIONIC INC INC QUANTITAT SELVIN BASIC 97072 L[facility] [place] METABOLIC 3 [facility] PANEL INC INC CALCIUM TOTAL URINE 52018 LUD[facility] [place] 3 [facility] TEST CENTER CENTER VISUAL COLOR CMPRSN METHS WET Q0111 LUD[facility] [place] UMAIR 3 [facility] INCL PREP CENTER CENTER VAGINAL CERV/SKIN SPECIMENS IADNA 07132 LUD[facility] [place] CHLAMYDIA 3 [facility] CENTER [place] TRACHOMAT IS AMPLIFIED PROBE TQ SMR PRIM 14072 LUD[facility] LUDIV[place] SRC WET 3 [facility] NFCT AGT CONTRACEP A4267 LUDIV[facility] [place] TIVE 3 [facility]ALTH SUPPLY CENTER CENTER CONDOM MALE EACH IADNA 23259 LUD[facility] [place] NEISSERIA 3 [facility] [place] CENTER GONORRHOE AE AMPLIFIED PROBE TQ URINE 04297 L[facility] [place] 3 [facility] TEST INC INC VISUAL COLOR CMPRSN METHS THERAPEUT 93908 L[facility] [place] IC 3 [facility] PROPHYLAC INC INC TIC/DX INJECTION SUBQ/IM IAADIADOO 90017 ISAAK ISAAK 3 R H R H STREPTOCO CCUS GROUP A CONTRACEP A4267 LUDIVINA [place] TIVE 2 [facility] HEALTH SUPPLY CENTER CENTER CONDOM MALE EACH IADNA 38772 LUDIIVNA [place] NEISSERIA 2 [facility] CENTER GONORRHOE AE AMPLIFIED PROBE TQ IADNA 62427 LUDIVINA [place] CHLAMYDIA 2 [facility] CENTER TRACHOMAT IS AMPLIFIED PROBE TQ FRAMES V2020 SCIFRES SCIFRES PURCHASES 2 ANG ANG 1 VISN V2103 SCIFRES SCIFRES PLANO 2 ANG ANG TO+/-4.00 D SPHER 0.12-2.00 D CYL EA DETERMINA 43020 SCIFRES SCIFRES TION 2 ANG ANG REFRACTIV E STATE FITTING 82304 SCIFRES SCIFRES SPECTACLE 2 ANG ANG S XCPT APHAKIA MONOFOCAL VISION V2799 SCIFRES SCIFRES ITEM OR 2 ANG ANG SERVICE MISCELLAN EOUS OPHTH 88269 SCIFRES SCIFRES MEDICAL 2 ANG ANG XM&EVAL COMPRHNSV ESTAB PT 1/> COMPREHEN 21307 [facility] [place] SIVE 2 [facility] [place] [address] [facility] [place] INFUSION 2 [facility] THERAPY/P INC INC ROPHYLAXI S /DX 1ST TO 1 HR THERAPEUT 09223 [facility] [place] IC 2 [facility] INJECTION INC INC IV PUSH EACH NEW DRUG URINE 28875 L[facility] [place] 2 [facility] TEST INC INC VISUAL COLOR CMPRSN METHS BLOOD 46246 [facility] [place] COUNT 2 [facility] COMPLETE INC INC AUTO&AUTO DIFRNTL WBC URNLS DIP 71138 [facility] [place] 2 [facility] STICK/TAB INC INC LET REAGENT AUTO MICROSCOP Y CULTURE 56578 L[facility] [place] BACTERIAL 2 [facility] INC INC QUANTTATI VE COLONY COUNT URINE CULTURE 79293 COMBINED COMBINED BACTERIAL 2 PHYSICIAN PHYSICIAN S LA S LA QUANTTATI VE COLONY COUNT URINE THROMBOPL 61047 COMBINED COMBINED ASTIN 2 PHYSICIAN PHYSICIAN TIME S LA S LA PARTIAL PLASMA/[place] [address] LAB TOI LAB TOI LIPASE 2 [facility] HOLDINGS COMPREHEN 48146 COMBINED COMBINED SIVE 2 PHYSICIAN PHYSICIAN [place] [address] COMBINED COMBINED AMYLASE 2 PHYSICIAN PHYSICIAN S LA S LA URNLS DIP 21719 FAMILY FAMILY 2 CARE CARE STICK/TAB ASSOCIATE ASSOCIATE LET RGNT S S NON-AUTO W/O MICRSCP PROTHROMB 68228 FAMILY FAMILY IN TIME 2 CARE CORPORATE SAFETY DIRECTOR ASSOCIATE S S BLOOD 63629 FAMILY FAMILY COUNT 2 CARE CARE COMPLETE ASSOCIATE ASSOCIATE AUTO&AUTO S S DIFRNTL WBC BLOOD 59441 ISAAK ISAAK COUNT 2 R H R H COMPLETE AUTO&AUTO DIFRNTL WBC IAADIADOO 16144 MULBERRY MULBERRY 2 WILL WILL STREPTOCO CCUS GROUP A IAADIADOO 64971 MULBERRY MULBERRY 2 WILL WILL STREPTOCO CCUS GROUP A IADNA 45037 LUDIVNIA [place] NEISSERIA 1 [facility] GONORRHOE AE AMPLIFIED PROBE TQ CONTRACEP S4993 LUDIVINA [place] TIVE 1 [facility] FOR CENTER CENTER CONTROL IADNA 68916 LUDIVINA [place] CHLAMYDIA 1 [facility] CENTER TRACHOMAT IS AMPLIFIED PROBE TQ URINE 10406 L[facility] [place] 1 [facility] CENTER VISUAL COLOR CMPRSN METHS REPAIR OB 75.69 Rashi Tapia MD LACERATIO N NEC Encounters Encounter Start End Date Code Location Performer Type Date PERIODIC [address] [facility] PREVENTIV 5 5 PHYSICIAN E MED EST S GROUP PATIENT 18-39 YRS Emergency LALO Peter MD (ER) 4 22:08 4 23:21 [facility] EMERGENCY [address] [address] [facility] DEPARTMEN INC T VISIT LOW/MODER SEVERITY EMERGENCY 43446 ABDIAS AREVALO 4 4 DEPARTMEN T VISIT MODERATE SEVERITY HOSPITAL [facility] - [address] [facility] OUTPATIEN INC T PERIODIC 82405 [facility] PRE[facility]IV 4 4 [facility] E MED EST HLTH DEPT HLTH DEPT PATIENT VIVIENNE VIVIENNE 18-39 YRS Emergency LALO Ludivina Camargo MD (ER) 4 20:48 4 22:34 [facility] LUDIV[facility] - 4 4 [facility] OUTPATIEN INC T EMERGENCY 08997 ADOLFO CAMARGO 4 4 [facility] LUIS DEPARTMEN T VISIT HIGH/URGE NT SEVERITY EMERGENCY 23221 [facility] 4 4 [facility] DEPARTMEN INC T VISIT MODERATE SEVERITY Inpatient HARDY Tapia MD (IN) 3 04:58 3 18:22 [facility] LUDIVINA - 3 3 [facility] INPATIENT INC OFFICE 36766 REGINA TAPIA OUTPATIEN 3 3 CARMEN CARMEN T VISIT 15 MINUTES OFFICE 55794 TAPIA TAPIA OUTPATIEN 3 3 CARMEN CARMEN T VISIT 15 MINUTES OFFICE 78678 TAPIA REGINA OUTPATIEN 3 3 CARMEN CARMEN T VISIT 15 MINUTES HOSPITAL [facility] - 3 3 [facility] OUTPATIEN INC T OFFICE 21350 TAPIA TAPIA OUTPATIEN 3 3 CARMEN CARMEN T VISIT 15 MINUTES OFFICE 46975 TAPIA TAPIA OUTPATIEN 3 3 CARMEN CARMEN T VISIT 15 MINUTES OFFICE 56106 TAPIA TAPIA OUTPATIEN 3 3 CARMEN CARMEN T VISIT 15 MINUTES HOSPITAL [facility] - 3 3 [facility] OUTPATIEN INC T OFFICE 64959 REGINA TAPIA OUTPATIEN 3 3 CARMEN CARMEN T VISIT 15 MINUTES HOSPITAL [facility] - 3 3 [facility] OFFICE 21340 REGINA TAPIA OUTPATIEN 3 3 CARMEN CARMEN T VISIT 5 MINUTES HOSPITAL [facility] - 3 3 [facility] OUTPATIEN INC T HOSPITAL [facility] - 3 3 [facility] OUTPATIEN INC T HOSPITAL [facility] - 3 3 [facility] OUTPATIEN INC T OFFICE 22932 REGINA TAPIA OUTPATIEN 3 3 CARMEN CARMEN T VISIT 15 MINUTES OFFICE 39850 REGINA TAPIA OUTPATIEN 3 3 CARMEN CARMEN T VISIT 15 MINUTES OFFICE 76877 FAMILY OUTPATIEN 3 3 CARE T VISIT ASSOCIATE 15 S MINUTES HOSPITAL [facility] - [address] [facility] OUTPATIEN INC T OFFICE 71132 REGINA TAPIA OUTPATIEN 3 3 CARMEN CARMEN T VISIT 15 MINUTES OFFICE 38507 REGINA TAPIA OUTPATIEN 3 3 CARMEN CARMEN T VISIT 15 MINUTES OFFICE 53161 MULBERRY MULBERRY OUTPATIEN 3 3 WILL WILL T VISIT 15 MINUTES OFFICE 53838 [facility] WEAVER 3 3 [facility] T VISIT CENTER CENTER 15 MINUTES Emergency LALO Kelly MD (ER) 3 00:01 3 02:07 [facility] F. EMERGENCY [address] [place] [address] [facility] DEPARTMEN INC T VISIT MODERATE SEVERITY EMERGENCY 42421 [facility] MAG[facility]ON 3 3 EMERGENCY DEPARTMEN SERVICES T VISIT HIGH/URGE NT SEVERITY HOSPITAL [facility] - 3 3 [facility] OUTPATIEN INC T OFFICE 42399 [facility] WEAVER 3 3 [facility] T VISIT CENTER CENTER 25 MINUTES HOSPITAL [facility] - 3 3 [facility] OUTPATIEN INC T EMERGENCY 15596 [facility] GOINS 3 3 EMERGENCY EMMA DEPARTMEN SERVICES T VISIT HIGH/URGE NT SEVERITY EMERGENCY 28857 [facility] 3 3 [facility] DEPARTMEN INC T VISIT LOW/MODER SEVERITY OFFICE 37092 ISAAK ISAAK OUTPATIEN 3 3 R H R H T VISIT 15 MINUTES PERIODIC 43620 L[place] PREVENTIV 2 2 [facility] HEALTH E MED EST CENTER CENTER PATIENT 18-39 YRS OFFICE 07659 ISAAK ISAAK OUTPATIEN 2 2 R H R H T VISIT 15 MINUTES HOSPITAL [facility] - 2 2 [facility] OUTPATIEN INC T EMERGENCY 92160 ADOLFO HERNANDEZEY 2 2 LUIS LUIS DEPARTMEN T VISIT HIGH/URGE NT SEVERITY OFFICE 25422 FAMILY OUTPATIEN 2 2 CARE T VISIT ASSOCIATE 25 S MINUTES OFFICE 43317 FAMILY OUTPATIEN 2 2 CARE T VISIT ASSOCIATE 25 S MINUTES OFFICE 92092 MULBERRY MULBERRY OUTPATIEN 2 2 WILL WILL T VISIT 15 MINUTES OFFICE 01930 MULBERRY MULBERRY OUTPATIEN 2 2 WILL WILL T VISIT 15 MINUTES OFFICE 46593 FAMILY ISAAK OUTPATIEN 2 2 CARE R H T VISIT ASSOCIATE 15 S MINUTES HOSPITAL [facility] - 1 1 [facility] OUTPATIEN INC T EMERGENCY 78005 BROWN BEATA BROWN BEATA 1 1 DEPARTMEN T VISIT HIGH/URGE NT SEVERITY EMERGENCY 93812 [facility] 1 1 [facility] DEPARTMEN INC T VISIT LIMITED/M INOR PROB OFFICE 23023 LUD[facility] [place] OUTPATIEN 1 1 [facility] HEALTH T VISIT CENTER CENTER 15 MINUTES PERIODIC 94443 LUDIVINA [place] PREVENTIV 1 1 [facility] HEALTH E MED EST CENTER CENTER PATIENT 12-17YRS
--- OUTSIDE RECORDS SUMMARY | 2017-08-27 17:25 | External Medical Summary Rpt | CCD ---
Author Author , ALMAS Organization ALMAS Address Unknown Phone [email or web address] Care Team Providers Care Biochemistry Technician Name Role Phone REGINA CARMEN, REGINA Unavailable Unavailable CARMEN REGINA MORALES, REGINA Unavailable Unavailable [facility] Unavailable Unavailable [facility] ZONIA SHERITA, Unavailable Unavailable ZONIA SHERITA ZONIA SHERITA, Unavailable Unavailable [facility] SHERITA [facility] ADOLFO LUIS, ADOLFO Unavailable Unavailable LUIS BROWN BEATA, BROWN BEATA Unavailable Unavailable [facility] Unavailable Unavailable [facility] Unavailable Unavailable [facility], [facility] Unavailable [facility], [facility]available [facility]available [facility] Unavailable Unavailable [facility], [facility] Unavailable Unavailable [facility], [facility] Unavailable Unavailable SERVICES, [facility] ANAT SHERITA, Unavailable Unavailable ANAT SHERITA ANAT SHERITA, Unavailable Unavailable [facility] MULBERRY WILL, Unavailable Unavailable MULBERRY WILL MULBERRY WILL, Unavailable Unavailable MULBERRY WILL ISAAK R H, Unavailable Unavailable ISAAK R H ISAAK R H, Unavailable Unavailable ISAAK R H Unavailable [facility]available [facility] PICKLESIMER JR FERNIE, Unavailable Unavailable [facility] PICKLESIMER JR FERNIE, Unavailable Unavailable [facility] BUSTER EMMA, BUSTER Unavailable Unavailable EMMA SCIFRES ANG, SCIFRES Unavailable Unavailable ANG SCIFRES ANG, SCIFRES Unavailable Unavailable ANG ALMAZAN SHERITA, ALMAZAN SHERITA Unavailable Unavailable VERÓNICA JAZMIN, VERÓNICA Unavailable Unavailable JAZMIN VERÓNICA JAZMIN, VERÓNICA Unavailable Unavailable JAZMIN [facility] Unavailable Unavailable [facility] Unavailable Unavailable [facility] DE[facility] ABDIAS AREVALO, ABDIAS AREVALO Unavailable Unavailable ABDIAS AREVALO, ABDIAS AREVALO Unavailable Unavailable Purpose Continuity of Care Document - 06-05-2011 through 2016 Problems Code Diagnosis DOS Provider Status V7231 ROUTINE 11-16-2014 [facility] EXAMINATION 462 ACUTE 12-26-2013 ABDIAS AREVALO PHARYNGITIS V2549 SURVEILLANC 12-08-2013 [facility] DEPT CONTRACEPT VIVIENNE METHOD V2689 OTHER 12-08-2013 [facility] SPECIFIED [facility] DEPT MANAGEMENT VIVIENNE 09207 CONDYLOMA 11-17-2013 [facility] ACUMINATUM JR FERNIE V255 INSERTION 11-17-2013 REGINA MORALES OF IMPLANTABLE SUBDERMAL CONTRACEPTI VE 5990 URINARY 11-16-2013 [facility] TRACT [facility] INFECTION INC SITE NOT SPECIFIED 6253 DYSMENORRHE 11-16-2013 [facility] A [facility] INC 650 NORMAL 10-05-2013 VERÓNICA JAZMIN DELIVERY 78713 OLIGOHYDRAM 10-05-2013 [facility] NIOS, [facility] DELIVERED INC 34094 FIRST-DEGRE 10-05-2013 [facility] E PERINEAL [facility] LACERATION INC WITH DELIVERY V270 OUTCOME OF 10-05-2013 [facility] DELIVERY [facility] SINGLE INC LIVEBORN 76661 THREATENED 10-04-2013 REGINA CARMEN PREMATURE LABOR ANTEPARTUM 54216 OLIGOHYDRAM 09-29-2013 REGINA MORALES NIOS, ANTEPARTUM V220 SUPERVISION 09-25-2013 REGINA CARMEN OF NORMAL FIRST 72773 POOR 09-10-2013 REGINA CARMEN GROWTH MGMT MOTH ANTPRTM COND/COMP 59319 ABN MAT 09-09-2013 [facility] GLUCOSE [facility] TOLERANCE INC COMPL PG CB/PP UNS EOC 76923 PREMATURE 07-15-2013 [facility] DIAGNOSTICC OF [place] ENTER ANTEPARTUM V2389 SUPERVISION 07-15-2013 OF OTHER DIAGNOSTICC HIGH-RISK ENTER 67749 HEMORRHAGE 07-14-2013 REGINA CARMEN FROM PLACENTA PREVIA ANTEPARTUM 44828 UNSPECIFIED 07-14-2013 ANAT ANTEPARTUM SHERITA HEMORRHAGE ANTEPARTUM 78377 SPOTTING 07-14-2013 REGINA CARMEN COMP ANTEPARTUM COND/COMP 24959 ABNORMAL 07-13-2013 REGINA CARMEN MATERNAL GLUCOSE TOLERANCE ANTEPARTUM 22148 UNSPEC 07-11-2013 Z[facility]IA HEMORRHAGE SHERITA EARLY ANTEPARTUM V221 SUPERVISION 07-11-2013 ZONIA OF OTHER SHERITA NORMAL V283 ENCOUNTER 05-27-2013 REGINA MORALES ROUTINE SCREEN MALFORMATIO N ULTRASONIC 01499 HORDEOLUM 05-19-2013 [facility] 83230 OTHER 03-12-2013 REGINA CARMEN SPECIFED COMPLICATIO N ANTEPARTUM 460 ACUTE 02-19-2013 MULBERRY NASOPHARYNG WILL ITIS V016 CONTACT 02-17-2013 [facility] SIN WITH OR HEALTH EXPOSURE TO CENTER VENEREAL DISEASES 07897 THREATENED 02-16-2013 [facility] , [facility] ANTEPARTUM INC 06190 UNSPEC 02-16-2013 [facility] HEMORR EMERGENCY EARLY PG SERVICES UNSPEC EPIS CARE V7242 02-10-2013 [facility] SIN EXAMINATION HEALTH OR TEST CENTER POSITIVE RESULT 26589 MIGRAINE 11-15-2012 [facility] UNSP W/O EMERGENCY INTRACT W/O SERVICES STATUS MIGRAINOSUS 4720 CHRONIC 11-11-2012 ISAAK R RHINITIS H V2541 SURVEILLANC 10-07-2012 [facility] SIN E [facility] CONTRACEPT PILL V720 EXAMINATION 07-31-2012 SCIFRES ANG OF EYES AND VISION 5589 OTH&UNSPEC 05-26-2012 [facility] NONINFECTIO [facility] US INC GASTROENTER ITIS&COLITI S 88460 OTHER 05-26-2012 [facility] MALAISE AND [facility] FATIGUE INC 01040 NAUSEA WITH 05-26-2012 [facility] VOMITING [facility] INC 7840 HEADACHE 05-08-2012 [facility] 83578 OTHER 04-18-2012 [facility] SPECIFIED PHYSICIANS CIRCULATORY LA SYSTEM DISORDERS 7241 PAIN IN 04-18-2012 [place] [address] ABDOMINAL 04-18-2012 LAB TOI PAIN, [facility] 7242 LUMBAGO 04-17-2012 [facility] 47501 VOMITING 04-17-2012 [facility] 0340 STREPTOCOCC 02-21-2012 MULBERRY AL SORE WILL THROAT 4619 ACUTE 11-27-2011 [facility] SINUSITIS, [facility] UNSPECIFIED 07349 NAUSEA 09-13-2011 [facility] ALONE [facility] INC 2662 OTHER 06-05-2011 [facility] S[facility] B[facility] S V2509 OT GENERAL 06-05-2011 [facility] CONTRACEPT MANAGEMENT Procedures Procedure DOS Code Location Performer Comment CUL 94607 COMBINED COMBINED PRSMPTV 5 PHYSICIAN PHYSICIAN PTHGNC S LA S LA ORGANISM SCRN W/COLONY ESTIMJ ANTIBODY 66483 COMBINED COMBINED CHLAMYDIA 5 PHYSICIAN PHYSICIAN S LA S LA IADNA 48255 [facility] TH DEPT HLTH DEPT TRACHOMAT VIVIENNE VIVIENNE IS AMPLIFIED PROBE TQ CONTRACEP A4267 [facility] TIVE [facility] SUPPLY HLTH DEPT HLTH DEPT CONDOM VIVIENNE VIVIENNE MALE EACH IADNA 09338 [facility] NEISSERIA [facility] HLTH DEPT HLTH DEPT GONORRHOE VIVIENNE VIV[place] [address] PICKLESIM PICKLESIM SURG 4 ER JR FERNIE ER JR FERNIE PATHOLOGY GROSS&LUIS ROSCOPIC EXAM ETONOGEST J7307 REGINA TAPIA REL 4 CARMEN CARMEN CNTRACPT IMPL SYS INCL IMPL & SPL INSJ 34495 REGINA TAPIA NON-BIODE 4 CARMEN CARMEN GRADABLE DRUG DELIVERY IMPLANT URINE 43652 REGINA TAPIA 4 CARMEN CARMEN TEST VISUAL COLOR CMPRSN METHS URINE 86090 [facility] 4 [facility] TEST INC INC VISUAL COLOR CMPRSN METHS CULTURE 96055 [facility] BACTERIAL 4 [facility] INC INC QUANTTATI VE COLONY COUNT URINE CULTURE 56672 [facility] FLOERNCE BCT 4 [facility] ISOL&PRSM INC INC PTV ID ISOLATE EA URINE URNLS DIP 36209 [facility] [place] 4 [facility] STICK/TAB INC INC LET REAGENT AUTO MICROSCOP Y BLOOD 90368 [facility] [place] COUNT 4 [facility] COMPLETE INC INC AUTO&AUTO DIFRNTL WBC SUSCEPTIB 26712 [facility] [place] LTY STDY 4 [facility] ANTIMICRB INC INC IAL MICRO/AGA R DILUTJ COMPREHEN 13257 [facility] SIVE 4 [facility] METABOLIC INC INC PANEL REPAIR OF 7569 [facility] [place] OTHER 3 [facility] CURRENT INC INC OBSTETRIC LACERATIO N VAGINAL 61094 REGINA TAPIA DELIVERY 3 CARMEN CARMEN ONLY W/POSTPAR RKYSTIAN CARE NEURAXIAL 10912 VERÓNICA SANCHES LABOR 3 JAZMIN JAZMIN ANALG/ANE S PLND VAGINAL DELIVERY 83461 TAPIA TAPIA NONSTRESS 3 CARMEN CARMEN TEST 76882 [facility] NONSTRESS 3 CARMEN CARMEN TEST 00336 [facility] BIOPHYSIC 3 CARMEN CARMEN AL PROFILE W/O NON-STRES S TESTING DOPPLER 50396 [facility] T[facility]IA VELOCIMET 3 CARMEN CARMEN RY UMBILICAL ARTERY US PREG 35568 [facility]IA TAPIA UTERUS 3 CARMEN CARMEN REAL TIME F/U TRNSABDL PER FETUS DOPPLER 15663 TAPIA TAPIA VELOCIMET 3 CARMEN CARMEN RY UMBILICAL ARTERY US PREG 77922 TAPIA TAPIA UTERUS 3 CARMEN CARMEN REAL TIME W/IMAGE DCMTN TRANSVAG 47906 T[facility]IA TAPIA BIOPHYSIC 3 CARMEN CARMEN AL PROFILE W/O NON-STRES S TESTING DOPPLER 28226 TAPIA TAPIA VELOCIMET 3 CARMEN CARMEN RY UMBILICAL ARTERY US PREG 44942 TAPIATiarra TAPIA UTERUS 3 CARMEN CARMEN REAL TIME F/U TRNSABDL PER FETUS 25584 TAPIA TAPIA BIOPHYSIC 3 CARMEN CARMEN AL PROFILE W/O NON-STRES S TESTING EVAL C/V 96886 [facility] [place] AMNIOTIC 3 [facility] FLUID INC INC PROTEIN QUAL EA SPECIMEN CUL BACT 96896 COMBINED COMBINED XCPT 3 PHYSICIAN PHYSICIAN URINE S LA S LA BLOOD/STO OL AEROBIC ISOL BLOOD 71144 [facility] [place] COUNT 3 [facility] COMPLETE INC INC AUTO&AUTO DIFRNTL WBC URNLS DIP 64016 [facility] [place] 3 [facility] STICK/TAB INC INC LET REAGENT AUTO MICROSCOP Y 96931 [facility] [place] NONSTRESS 3 [facility] TEST INC INC BASIC 10153 [facility] [place] METABOLIC 3 [facility] PANEL INC INC CALCIUM TOTAL DOPPLER 57472 [facility]IA [facility] VELOCIMET 3 CARMEN CARMEN RY UMBILICAL ARTERY 07678 T[facility]IA T[facility]IA BIOPHYSIC 3 CARMEN CARMEN AL PROFILE W/O NON-STRES S TESTING US PREG 55773 TAPIA TAPIA UTERUS 3 CARMEN CARMEN REAL TIME F/U TRNSABDL PER FETUS GLUCOSE 27909 [facility] [place] TOLERANCE 3 [facility] TEST GTT INC INC 3 [facility]ENS HOSPITAL 00171 [place] [facility]GE 3 SHERITA DAY DIAGNOSTI MANAGEMEN CCENTER T 30 MIN/< SBSQ 82833 [facility] 3 SHERITA CARE/DAY DIAGNOSTI 15 CCENTER MINUTES 05735 REGINA TAPIA BIOPHYSIC 3 CARMEN CARMEN AL PROFILE W/O NON-STRES S TESTING US PREG 21435 [facility] UTERUS 3 SHERITA SHERITA W/DETAIL BRITT 1ST GESTATION US PREG 01799 REGINA TAPIA UTERUS 3 CARMEN CARMEN REAL TIME F/U TRNSABDL PER FETUS GLUCOSE 14610 REGINA TAPIA TOLERANCE 3 CARMEN CARMEN TEST GTT 3 SPECIMENS THERAPEUT 66681 [facility] [place] IC 3 [facility] PROPHYLAC INC INC TIC/DX INJECTION SUBQ/IM THERAPEUT 93982 [facility] [place] IC 3 [facility] PROPHYLAC INC INC TIC/DX INJECTION SUBQ/IM US PREG 33433 [facility] [place] UTERUS 3 [facility] REAL TIME INC INC W/IMAGE DCMTN TRANSVAG 66660 [facility] NONSTRESS 3 [facility] 37302 [facility] [place] BIOPHYSIC 3 [facility] AL INC INC PROFILE W/O NON-STRES S TESTING 05916 ZONIA ZONIA BIOPHYSIC 3 SHERITA SHERITA AL PROFILE NON-STRES S TESTING URNLS DIP 21799 [facility] DIAZON 3 [facility] STICK/TAB INC INC LET REAGENT AUTO MICROSCOP Y URNLS DIP 19996 [facility] [place] 3 [facility] STICK/TAB INC INC LET REAGENT AUTO MICROSCOP Y 98589 [facility] NONSTRESS 3 [facility]ALTH CARMEN [facility] US PREG 73687 REGINA TAPIA UTERUS 3 CARMEN CARMEN AFTER 1ST TRIMEST 1/1ST GESTATION ALPHA-FET 69065 [facility] OPROTEIN 3 [facility] [place] [address] [facility] ESTRIOL 3 [facility] INC INC GONADOTRO 68072 [facility] PIN 3 [facility] CHORIONIC INC INC QUANTITAT SELVIN US PREG 33746 REGINA TAPIA UTERUS 3 CARMEN CARMEN REAL TIME W/IMAGE DCMTN TRANSVAG BLOOD 55333 MUL[facility]ERRY MULBERRY COUNT 3 WILL WILL COMPLETE AUTO&AUTO DIFRNTL WBC IAADIADOO 42568 MULBERRY MULBERRY 3 WILL WILL STREPTOCO CCUS GROUP A BLOOD 75925 [facility] [place] COUNT 3 [facility] COMPLETE INC INC AUTO&AUTO DIFRNTL WBC URNLS DIP 64435 [facility] [place] 3 [facility] STICK/TAB INC INC LET REAGENT AUTO MICROSCOP Y GONADOTRO 82201 [facility] [place] PIN 3 [facility] CHORIONIC INC INC QUANTITAT SELVIN BASIC 19850 [facility] [place] METABOLIC 3 [facility] PANEL INC INC CALCIUM TOTAL WET Q0111 [facility] TRAVISS 3 [facility] INCL PREP CENTER CENTER VAGINAL CERV/SKIN SPECIMENS IADNA 25683 [facility] [place] CHLAMYDIA 3 [facility] IS AMPLIFIED PROBE TQ URINE 37735 [facility] [place] [facility] CENTER VISUAL COLOR CMPRSN METHS SMR PRIM 27739 [facility] SRC WET 3 [facility] NFCT AGT CONTRACEP A4267 [facility] TIVE 3 [facility] SUP[facility]Y [facility] CENTER CONDOM MALE EACH IADNA 32920 [facility] [place] NEISSERIA 3 [facility] GONOR[facility] AE AMPLIFIED PROBE TQ URINE 69344 [facility] [place] 3 [facility] TEST INC INC VISUAL COLOR CMPRSN METHS THERAPEUT 84216 [facility] IC 3 [facility] PROPHYLAC INC INC TIC/DX INJECTION SUBQ/IM IAADIADOO 03624 ISAAK ISAAK 3 R H R H STREPTOCO CCUS GROUP A IADNA 79878 [facility] [place] NEISSERIA 2 [facility] GONORRHOE AE AMPLIFIED PROBE TQ CONTRACEP A4267 [facility] [place] TIVE 2 [facility] CONDOM MALE EACH IADNA 90167 [facility] [place] CHLAMYDIA 2 [facility] TR[facility]OM[facility] IS AMPLIFIED PROBE TQ FITTING 50118 SCIFRES SCIFRES SPECTACLE 2 ANG ANG S XCPT APHAKIA MONOFOCAL OPHTH 90034 SCIFRES SCIFRES MEDICAL 2 ANG ANG XM&EVAL COMPRHNSV ESTAB PT 1/> FRAMES V2020 SCIFRES SCIFRES PURCHASES 2 ANG ANG 1 VISN V2103 SCIFRES SCIFRES PLANO 2 ANG ANG TO+/-4.00 D SPHER 0.12-2.00 D CYL EA DETERMINA 03252 SCIFRES SCIFRES TION 2 ANG ANG REFRACTIV E STATE VISION V2799 SCIFRES SCIFRES ITEM OR 2 ANG ANG SERVICE MISCELLAN EOUS COMPREHEN 43257 [facility] SIVE 2 [facility] [place] [address] [facility] INFUSION 2 [facility] THERAPY/P INC INC ROPHYLAXI S /DX 1ST TO 1 HR THERAPEUT 76924 [facility] IC 2 [facility] INJECTION INC INC IV PUSH EACH NEW DRUG BLOOD 46661 [facility] [place] COUNT 2 [facility] COMPLETE INC INC AUTO&AUTO DIFRNTL WBC URNLS DIP 22531 [facility] 2 [facility] STICK/TAB INC INC LET REAGENT AUTO MICROSCOP Y CULTURE 15608 [facility] [place] BACTERIAL 2 [facility] INC INC QUANTTATI VE COLONY COUNT URINE URINE 97122 [facility] [place] 2 [facility] TEST INC INC VISUAL COLOR CMPRSN METHS THROMBOPL 74650 COMBINED COMBINED ASTIN 2 PHYSICIAN PHYSICIAN TIME S LA S LA PARTIAL PLASMA/WH OLE BLOOD CULTURE 91844 COMBINED COMBINED BACTERIAL 2 PHYSICIAN PHYSICIAN S LA S LA [place] [address] COMBINED COMBINED AMYLASE 2 PHYSICIAN PHYSICIAN S LA S LA COMPREHEN 07628 COMBINED COMBINED SIVE 2 PHYSICIAN PHYSICIAN [place] [address] LAB TOI LAB TOI LIPASE 2 [facility] PROTHROMB 09146 FAMILY FAMILY IN TIME 2 CARE DELI CUTTER SLICER ASSOCIATE S S URNLS DIP 13054 FAMILY FAMILY 2 CARE CARE STICK/TAB ASSOCIATE ASSOCIATE LET RGNT S S NON-AUTO W/O MICRSCP BLOOD 44329 FAMILY FAMILY COUNT 2 CARE CARE COMPLETE ASSOCIATE ASSOCIATE AUTO&AUTO S S DIFRNTL WBC BLOOD 15457 ISAAK ISAAK COUNT 2 R H R H COMPLETE AUTO&AUTO DIFRNTL WBC IAADIADOO 13582 MULBERRY MULBERRY 2 WILL WILL STREPTOCO CCUS GROUP A IAADIADOO 14866 MULBERRY MULBERRY 2 WILL WILL STREPTOCO CCUS GROUP A IADNA 37661 [facility] [place] NEISSERIA 1 [facility] GONORRHOE AE AMPLIFIED PROBE TQ CONTRACEP S4993 [facility] TIVE 1 [facility] FOR [facility]ENTER CENTER CONTROL IADNA 65152 [facility] [place] CHLAMYDIA 1 [facility] TRACHOMAT IS AMPLIFIED PROBE TQ URINE 55914 [facility] [place] 1 [facility] TEST CENTER CENTER VISUAL COLOR CMPRSN METHS Encounters Encounter Start End Date Code Location Performer Type Date PERIODIC 42097 [facility] 5 5 PHYSICIAN E MED EST S GROUP PATIENT 18-39 YRS HOSPITAL [facility] - 4 4 [facility] OUTPATIEN INC T EMERGENCY 23146 [facility] 4 4 [facility] DEPARTMEN INC T VISIT LOW/MODER SEVERITY EMERGENCY 60934 ABDIAS AREVALO 4 4 DEPARTMEN T VISIT MODERATE SEVERITY PERIODIC 36381 [facility] DEPT HLTH DEPT PATIENT VIVIENNE VIVIENNE 18-39 YRS EMERGENCY 15310 [facility] 4 4 [facility] DEPARTMEN INC T VISIT MODERATE SEVERITY EMERGENCY 24733 ADOLFO MATA 4 4 [facility] DEPARTMEN T VISIT HIGH/URGE NT SEVERITY [facility]OSPITAL [facility] - 4 4 [facility] OUTPATIEN INC HOSP[facility] - 3 3 [facility] INPATIENT INC OFFICE 79574 REGINA TAPIA OUTPATIEN 3 3 CARMEN CARMEN T VISIT 15 MINUTES OFFICE 06461 REGINA TAPIA OUTPATIEN 3 3 CARMEN CARMEN T VISIT 15 MINUTES OFFICE 73126 REG[facility] TAPIA OUTPATIEN 3 3 CARMEN CARMEN T VISIT 15 MINUTES HOSPITAL [facility] - 3 3 [facility] OUTPATIEN INC T OFFICE 35985 REGINA TAPIA OUTPATIEN 3 3 CARMEN CARMEN T VISIT 15 MINUTES OFFICE 69676 REGINA TAPIA OUTPATIEN 3 3 CARMEN CARMEN T VISIT 15 MINUTES OFFICE 91239 REGINA TAPIA OUTPATIEN 3 3 CARMEN CARMEN T VISIT 15 MINUTES HOSPITAL [facility] - 3 3 [facility] OUTPATIEN INC T OFFICE 32539 REGINA TAPIA OUTPATIEN 3 3 CARMEN CARMEN T VISIT 15 MINUTES HOSPITAL [facility] - 3 3 [facility] IN[facility]IENT [facility] OFFICE 60685 REGINA TAPIA OUTPATIEN 3 3 CARMEN CARMEN T VISIT 5 MINUTES HOSPITAL [facility] - 3 3 [facility] OUTPATIEN [facility] - 3 3 [facility]IEN [facility] HOSPITAL L[facility] - 3 3 [facility] OUTPATIEN INC T OFFICE 70085 REGINA BOONEE OUTPATIEN 3 3 CARMEN CARMEN T VISIT 15 MINUTES OFFICE 30357 TAPIA TAPIA OUTPATIEN 3 3 CARMEN CARMEN T VISIT 15 MINUTES OFFICE 94016 FAMILY OUTPATIEN 3 3 CARE T VISIT ASSOCIATE 15 S MINUTES OFFICE 99852 REGINA TAPIA OUTPATIEN 3 3 CARMEN CARMEN T VISIT 15 MINUTES HOSPITAL [facility] - 3 3 [facility] OUTPATIEN INC T OFFICE 62520 TAIPA TAPIA OUTPATIEN 3 3 CARMEN CARMEN T VISIT 15 MINUTES OFFICE 02637 MULBERRY MULBERRY OUTPATIEN 3 3 WILL WILL T VISIT 15 MINUTES OFFICE 89469 [facility] [place] OUTPATIEN 3 3 [facility] T VISIT CENTER CENTER 15 MINUTES EMERGENCY 06021 [facility] 3 3 EMERGENCY DEPARTMEN SERVICES T VISIT HIGH/URGE NT SEVERITY EMERGENCY 29655 [facility] 3 3 [facility] DEPARTMEN INC T VISIT MODERATE SEVERITY [facility]OSPITAL [facility] - 3 3 [facility] OUTPATIEN INC T OFFICE 96348 [facility] [place] OUTPATIEN 3 3 [facility] T VISIT CENTER CENTER 25 MINUTES EMERGENCY 39821 [facility] GOINS 3 3 EMERGENCY EMMA DEPARTMEN SERVICES T VISIT HIGH/URGE NT SEVERITY [facility]OSPITAL [facility] - 3 3 [facility] OUTPATIEN INC T EMERGENCY 46994 [facility] 3 3 [facility] DEPARTMEN INC T VISIT LOW/MODER SEVERITY OFFICE 78500 ISAAK ISAAK OUTPATIEN 3 3 R H R H T VISIT 15 MINUTES PERIODIC 36759 [facility] [place] PREVENTIV 2 2 [facility] E MED EST CENTER CENTER PATIENT 18-39 YRS OFFICE 12120 ISAAK ISAAK OUTPATIEN 2 2 R H R H T VISIT 15 MINUTES HOSPITAL [facility] - 2 2 [facility] OUTPATIEN INC T EMERGENCY 57204 [facility] 2 2 [facility] DEPARTMEN INC T VISIT HIGH/URGE NT SEVERITY OFFICE 72310 FAMILY OUTPATIEN 2 2 CARE T VISIT ASSOCIATE 25 S MINUTES OFFICE 57887 FAMILY OUTPATIEN 2 2 CARE T VISIT ASSOCIATE 25 S MINUTES OFFICE 70252 MULBERRY MULBERRY OUTPATIEN 2 2 WILL WILL T VISIT 15 MINUTES OFFICE 24372 MULBERRY MULBERRY OUTPATIEN 2 2 WILL WILL T VISIT 15 MINUTES OFFICE 63674 FAMILY ISAAK OUTPATIEN 2 2 CARE R H T VISIT ASSOCIATE 15 S MINUTES HOSPITAL [facility] - 1 1 [facility] OUTPATIEN INC T EMERGENCY 15638 BROWN BEATA BROWN BEATA 1 1 DEPARTMEN T VISIT HIGH/URGE NT SEVERITY EMERGENCY 53118 [facility] 1 1 [facility] DEPARTMEN INC T VISIT LIMITED/M INOR PROB OFFICE 76335 [facility] [place] OUTPATIEN 1 1 [facility] T VISIT CENTER CENTER 15 MINUTES PERIODIC 96839 [facility] [place] PREVENTIV 1 1 [facility] E MED EST CENTER CENTER PATIENT 12-17YRS
--- OUTSIDE RECORDS SUMMARY | 2017-08-27 17:25 | External Medical Summary Rpt | CCD ---
Author Author , ALMAS Organization ALMAS Address Unknown Phone [email or web address] Providers Care Icing And Glaze Maker Name Role Phone REGINA CARMEN, REGINA Unavailable Unavailable CARMEN REGINA MORALES, REGINA Unavailable Unavailable [facility] Un[facility] [place] [place], [facility] Unavailable Unavailable [place], [facility] ZONIA SHERITA, Unavailable Unavailable ZONIA SHERITA ZONIA SHERITA, Unavailable Unavailable [facility], [facility] ADOLFO LUIS, ADOLFO Unavailable Unavailable LUIS BROWN BEATA, BROWN BEATA Unavailable Unavailable [facility] Unavailable Unavailable [place], [facility] Unavailable Unavailable [place], [facility] Unavailable Unavailable [facility], [facility], Unavailable Unavailable [facility] Unavailable Unavailable [facility], [facility] Unavailable Unavailable [facility], [facility] Unavailable Unavailable SERVICES, [facility] ANAT SHERITA, Unavailable Unavailable ANAT [...] JAZMIN VERÓNICA JAZMIN, VERÓNICA Unavailable Unavailable JAZMIN [facility] Unavailable Unavailable [facility] Unavailable Unavailable [facility] ABDIAS AREVALO, ABDIAS AREVALO Unavailable Unavailable ABDIAS AREVALO, ABDIAS AREVALO Unavailable Unavailable Purpose Continuity of Care Document - 06-05-2011 through 2016 Problems Code Diagnosis DOS Provider Status V7231 ROUTINE 11-16-2014 [facility] GROUP EXAMINATION 462 ACUTE 12-26-2013 ABDIAS AREVALO PHARYNGITIS V2549 SURVEILLANC 12-08-2013 [facility] PREV [facility] PRSC [facility] DEPT CONTRACEPT VIVIENNE METHOD V2689 OTHER 12-08-2013 [facility] SPECIFIED DISTRICT PROCREATIVE [facility] DEPT MANAGEMENT VIVIENNE 93897 CONDYLOMA 11-17-2013 [facility] ACUMINATUM JR FERNIE V255 INSERTION 11-17-2013 REGINA MORALES OF IMPLANTABLE SUBDERMAL CONTRACEPTI VE 5990 URINARY 11-16-2013 [facility]CT [facility] INFECTION INC SITE NOT SPECIFIED 6253 DYSMENORRHE 11-16-2013 [facility] A [facility] INC 650 NORMAL 10-05-2013 VERÓNICA JAZMIN DELIVERY 41408 OLIGOHYDRAM 10-05-2013 [facility] NIOS, [facility] DELIVERED INC 64138 FIRST-DEGRE 10-05-2013 [facility] E PERINEAL [facility] LACERATION INC WITH DELIVERY V270 OUTCOME OF 10-05-2013 [facility] DELIVERY [facility] SINGLE INC LIVEBORN 21068 THREATENED 10-04-2013 REGINA CARMEN PREMATURE LABOR ANTEPARTUM 80736 OLIGOHYDRAM 09-29-2013 REGINA MORALES NIOS, ANTEPARTUM V220 SUPERVISION 09-25-2013 REGINA CARMEN OF NORMAL FIRST 50869 POOR 09-10-2013 REGINA CARMEN GROWTH MGMT MOTH ANTPRTM COND/COMP 41342 ABN MAT 09-09-2013 [facility] GLUCOSE [facility] TOLERANCE INC COMPL PG CB/PP UNS EOC 29883 PREMATURE 07-15-2013 [facility] DIAGNOSTICC OF [place] ENTER ANTEPARTUM V2389 SUPERVISION 07-15-2013 OF OTHER DIAGNOSTICC HIGH-RISK ENTER 77875 HEMORRHAGE 07-14-2013 REGINA CARMEN FROM PLACENTA PREVIA ANTEPARTUM 02930 UNSPECIFIED 07-14-2013 ANAT ANTEPARTUM SHER[facility] HEMORRHAGE ANTEPARTUM 69839 SPOTTING 07-14-2013 REGINA CARMEN COMP ANTEPARTUM COND/COMP 48140 ABNORMAL 07-13-2013 REGINA CARMEN MATERNAL GLUCOSE TOLERANCE ANTEPARTUM 90942 UNSPEC 07-11-2013 ZONIA HEMORRHAGE SHERITA EARLY ANTEPARTUM V221 SUPERVISION 07-11-2013 OZNIA OF OTHER SHERITA NORMAL V283 ENCOUNTER 05-27-2013 REGINA MORALES ROUTINE SCREEN MALFORMATIO N ULTRASONIC 26782 HORDEOLUM 05-19-2013 [facility] 97866 OTHER 03-12-2013 REGINA CARMEN SPECIFED COMPLICATIO N ANTEPARTUM 460 ACUTE 02-19-2013 [facility] NASOPHARYNG WILL ITIS V016 CONTACT 02-17-2013 [facility] SIN WITH OR HEALTH EXPOSURE TO CENTER VENEREAL DISEASES 41721 THREATENED 02-16-2013 [facility] , [facility] ANTEPARTUM INC 33150 UNSPEC 02-16-2013 [facility] HEMORR EMERGENCY EARLY PG SERVICES UNSPEC EPIS CARE V7242 02-10-2013 [facility] SIN EXAMINATION HEALTH OR TEST CENTER POSITIVE RESULT 13930 MIGRAINE 11-15-2012 [facility] UNSP W/O EMERGENCY INTRACT W/O SERVICES STATUS MIGRAINOSUS 4720 CHRONIC 11-11-2012 ISAAK R RHINITIS H V2541 SURVEILLANC 10-07-2012 [facility] SIN E [facility] HEALTH PRESCRIBED CENTER CONTRACEPT PILL V720 EXAMINATION 07-31-2012 SCIFRES ANG OF EYES AND VISION 5589 OTH&UNSPEC 05-26-2012 [facility] NONINFECTIO [facility] US INC GASTROENTER ITIS&COLITI S 19836 OTHER 05-26-2012 [facility] FATIGUE INC 74206 NAUSEA WITH 05-26-2012 [facility] VOMITING [facility] INC 7840 HEADACHE 05-08-2012 [facility] 42012 OTHER 04-18-2012 [facility] SPECIFIED PHYSICIANS CIRCULATORY LA SYSTEM DISORDERS 7241 PAIN IN 04-18-2012 [place] [address] ABDOMINAL 04-18-2012 LAB TOI PAIN, [facility] 7242 LUMBAGO 04-17-2012 [facility] 61435 VOMITING 04-17-2012 [facility] ALONE [facility] 0340 STREPTOCOCC 02-21-2012 [facility] AL SORE WILL THROAT 4619 ACUTE 11-27-2011 [facility] SINUSITIS, ASSOCIATES UNSPECIFIED 50846 NAUSEA 09-13-2011 [facility] ALONE [facility] INC 2662 OTHER 06-05-2011 [facility] S[facility] B-[facility] DEFICIENCIE C[facility] S V2509 OT GENERAL 06-05-2011 [facility] CONTRACEPT MANAGEMENT Procedures Procedure DOS Code Location Performer Comment CUL 21151 COMBINED COMBINED PRSMPTV 5 PHYSICIAN PHYSICIAN PTHGNC S LA S LA ORGANISM SCRN W/COLONY ESTIMJ ANTIBODY 44444 COMBINED COMBINED CHLAMYDIA 5 PHYSICIAN PHYSICIAN S LA S LA IADNA 47601 [facility] DEPT HLTH DEPT TRACHOMAT VIVIENNE VIVIENNE IS AMPLIFIED PROBE TQ CONTRACEP A4267 [facility] TIVE [facility] SUPPLY HLTH DEPT HLTH DEPT CONDOM VIVIENNE VIVIENNE MALE EACH IADNA 60885 [facility] NEISSERIA [facility] HLTH DEPT HLTH DEPT GONORRHOE VIVIENNE VIV[place]EN[place] [address] PICKLESIM PICKLESIM SURG 4 ER JR FERNIE ER JR FERNIE PATHOLOGY GROSS&LUIS ROSCOPIC EXAM ETONOGEST J7307 REGINA TAPIA REL 4 CARMEN CARMEN CNTRACPT IMPL SYS INCL IMPL & SPL INSJ 02205 REGINA TAPIA NON-BIODE 4 CARMEN CARMEN GRADABLE DRUG DELIVERY IMPLANT URINE 91510 REGINA TAPIA 4 CARMEN CARMEN TEST VISUAL COLOR CMPRSN METHS URINE 99074 [facility] 4 [facility] TEST INC INC VISUAL COLOR CMPRSN METHS CULTURE 31802 [facility] BACTERIAL 4 [facility] INC INC QUANTTATI VE COLONY COUNT URINE CULTURE 65986 [facility] [place] BCT 4 [facility] ISOL&PRSM INC INC PTV ID ISOLATE EA URINE URNLS DIP 97864 [facility] [place] 4 [facility] STICK/TAB INC INC LET REAGENT AUTO MICROSCOP Y BLOOD 52848 [facility] [place] COUNT 4 [facility] COMPLETE INC INC AUTO&AUTO DIFRNTL WBC SUSCEPTIB 91469 [facility] [place] LTY STDY 4 [facility] ANTIMICRB INC INC IAL MICRO/AGA R DILUTJ COMPREHEN 04292 [facility] [place] SIVE 4 [facility] METABOLIC INC INC PANEL REPAIR OF 7569 [facility] [place] OTHER 3 [facility] CURRENT INC INC OBSTETRIC LACERATIO N VAGINAL 38116 REGINA TAPIA DELIVERY 3 CARMEN CARMEN ONLY W/POSTPAR [facility] NEURAXIAL 31009 VERÓNICA SANCHES LABOR 3 JAZMIN JAZMIN ANALG/ANE S PLND VAGINAL DELIVERY 95731 TAPIA TAPIA NONSTRESS 3 CARMEN CARMEN TEST 56350 [facility] NONSTRESS 3 CARMEN CARMEN TEST 32356 [facility] BIOPHYSIC 3 CARMEN CARMEN AL PROFILE W/O NON-STRES S TESTING DOPPLER 31272 T[facility]IA [facility]IA VELOCIMET 3 CARMEN CARMEN RY UMBILICAL ARTERY US PREG 51253 TAPIA TAPIA UTERUS 3 CARMEN CARMEN REAL TIME F/U TRNSABDL PER FETUS DOPPLER 77303 TAPIA TAPIA VELOCIMET 3 CARMEN CARMEN RY UMBILICAL ARTERY US PREG 58022 TAPIA TAPIA UTERUS 3 CARMEN CARMEN REAL TIME W/IMAGE DCMTN TRANSVAG 14156 TAPIA TAPIA BIOPHYSIC 3 CARMEN CARMEN AL PROFILE W/O NON-STRES S TESTING DOPPLER 57893 TAPIA TAPIA VELOCIMET 3 CARMEN CARMEN RY UMBILICAL ARTERY US PREG 54170 TAPIATiarra TAPIA UTERUS 3 CARMEN CARMEN REAL TIME F/U TRNSABDL PER FETUS 95334 TAPIA TAPIA BIOPHYSIC 3 CARMEN CARMEN AL PROFILE W/O NON-STRES S TESTING EVAL C/V 79403 [facility] [place] AMNIOTIC 3 [facility] FLUID INC INC PROTEIN QUAL EA SPECIMEN CUL BACT 58409 COMBINED COMBINED XCPT 3 PHYSICIAN PHYSICIAN URINE S LA S LA BLOOD/STO OL AEROBIC ISOL BLOOD 66989 [facility] [place] COUNT 3 [facility] COMPLETE INC INC AUTO&AUTO DIFRNTL WBC URNLS DIP 11602 [facility] [place] 3 [facility] STICK/TAB INC INC LET REAGENT AUTO MICROSCOP Y 11904 [facility] [place] NONSTRESS 3 [facility] TEST INC INC BASIC 42308 [facility] [place] METABOLIC 3 [facility] PANEL INC INC CALCIUM TOTAL DOPPLER 17495 T[facility]IA [facility] VELOCIMET 3 CARMEN CARMEN RY UMBILICAL ARTERY 66301 TAPIA [facility] BIOPHYSIC 3 CARMEN CARMEN AL PROFILE W/O NON-STRES S TESTING US PREG 23968 TAPIA TAPIA UTERUS 3 CARMEN CARMEN REAL TIME F/U TRNSABDL PER FETUS GLUCOSE 09924 [facility] [place] TOLERANCE 3 [facility] TEST GTT INC INC 3 [facility] 91892 [facility] DISCHARGE 3 [facility] DAY DIAGNOSTI MANAGEMEN CCENTER T 30 MIN/< SBSQ 89835 [facility] 3 [facility] CARE/DAY DIAGNOSTI 15 CCENTER MINUTES 17619 REGINA TAPIA BIOPHYSIC 3 CARMEN CARMEN AL PROFILE W/O NON-STRES S TESTING US PREG 58725 [facility] UTERUS 3 SHERITA SHERITA W/DETAIL BRITT 1ST GESTATION US PREG 26878 REGINA TAPIA UTERUS 3 CARMEN CARMEN REAL TIME F/U TRNSABDL PER FETUS GLUCOSE 40856 REGINA [facility]IA TOLERANCE 3 CARMEN CARMEN TEST GTT 3 SPECIMENS THERAPEUT 94361 [facility] [place] IC 3 [facility] PROPHYLAC INC INC TIC/DX INJECTION SUBQ/IM THERAPEUT 37388 [facility] [place] IC 3 [facility] PROPHYLAC INC INC TIC/DX INJECTION SUBQ/IM US PREG 85192 [facility] [place] UTERUS 3 [facility] REAL TIME INC INC W/IMAGE DCMTN TRANSVAG 35655 [facility]OMEN'S TAPIA NONSTRESS 3 [facility]MEN [facility] 37970 [facility] [place] BIOPHYSIC 3 [facility] AL INC INC PROFILE W/O NON-STRES S TESTING 20280 ZONIA ZONIA BIOPHYSIC 3 SHERITA SHERITA AL PROFILE NON-STRES S TESTING URNLS DIP 90020 [facility] DIAZON 3 [facility] STICK/TAB INC INC LET REAGENT AUTO MICROSCOP Y URNLS DIP 14097 [facility] [place] 3 [facility] STICK/TAB INC INC LET REAGENT AUTO MICROSCOP Y 91083 WOMEN'S TAPIA NONSTRESS 3 [facility] CARMEN TEST [facility] US PREG 11752 REGINA TAPIA UTERUS 3 CARMEN CARMEN AFTER 1ST TRIMEST 1/1ST GESTATION ALPHA-FET 88801 [facility] [place] OPROTEIN 3 [facility] [place] [address] [facility] ESTRIOL 3 [facility] INC INC GONADOTRO 28076 [facility] [place] PIN 3 [facility] CHORIONIC INC INC QUANTITAT SELVIN US PREG 92702 REGINA TAPIA UTERUS 3 CARMEN CARMEN REAL TIME W/IMAGE DCMTN TRANSVAG BLOOD 66324 [facility] COUNT 3 WILL WILL COMPLETE AUTO&AUTO DIFRNTL WBC IAADIADOO 59360 [facility]ULB[facility] 3 WILL WILL STREPTOCO CCUS GROUP A BLOOD 04475 [facility] [place] COUNT 3 [facility] COMPLETE INC INC AUTO&AUTO DIFRNTL WBC URNLS DIP 04412 [facility] [place] 3 [facility] STICK/TAB INC INC LET REAGENT AUTO MICROSCOP Y GONADOTRO 10228 [facility] [place] PIN 3 [facility] CHORIONIC INC INC QUANTITAT SELVIN BASIC 38764 [facility] [place] METABOLIC 3 [facility] PANEL INC INC CALCIUM TOTAL WET Q0111 [facility] TRAVISS 3 [facility] INCL PREP CENTER CENTER VAGINAL CERV/SKIN SPECIMENS IADNA 15996 [facility] [place] CHLAMYDIA 3 [facility]ADWIN TRACHOMAT IS AMPLIFIED PROBE TQ URINE 91385 [facility] [place] 3 [facility] TEST C[facility] CENTER VISUAL COLOR CMPRSN METHS SMR PRIM 43429 [facility] [place] SRC WET 3 [facility] NFCT AGT CONTRACEP A4267 [facility] [place] TIVE 3 [facility] CENTER CONDOM MALE EACH IADNA 91592 [facility] [place] NEISSERIA 3 [facility] GONORRHOE AE AMPLIFIED PROBE TQ URINE 32128 [facility] [place] 3 [facility] TEST INC INC VISUAL COLOR CMPRSN METHS THERAPEUT 99307 [facility] [place] IC 3 [facility] PROPHYLAC INC INC TIC/DX INJECTION SUBQ/IM IAADIADOO 05213 ISAAK ISAAK 3 R H R H STREPTOCO CCUS GROUP A IADNA 45836 [facility] [place] NEISSERIA 2 [facility] INC CENTER GONORRHOE AE AMPLIFIED PROBE TQ CONTRACEP A4267 [facility] [place] TIVE [address] [facility] CENTER CONDOM MALE EACH IADNA 85992 [facility] [place] CHLAMYDIA 2 [facility] INC CENTER TRACHOMAT IS AMPLIFIED PROBE TQ FITTING 43255 SCIFRES SCIFRES SPECTACLE 2 ANG ANG S XCPT APHAKIA MONOFOCAL OPHTH 48133 SCIFRES SCIFRES MEDICAL 2 ANG ANG XM&EVAL COMPRHNSV ESTAB PT 1/> FRAMES V2020 SCIFRES SCIFRES PURCHASES 2 ANG ANG 1 VISN V2103 SCIFRES SCIFRES PLANO 2 ANG ANG TO+/-4.00 D SPHER 0.12-2.00 D CYL EA DETERMINA 38425 SCIFRES SCIFRES TION 2 ANG ANG REFRACTIV E STATE VISION V2799 SCIFRES SCIFRES ITEM OR 2 ANG ANG SERVICE MISCELLAN EOUS COMPREHEN 51312 [facility] SIVE 2 [facility] [place] [address] [facility] INFUSION 2 [facility] THERAPY/P INC INC ROPHYLAXI S /DX 1ST TO 1 HR THERAPEUT 35201 [facility] [place] IC 2 [facility] INJECTION INC INC IV PUSH EACH NEW DRUG BLOOD 50669 [facility] [place] COUNT 2 [facility] COMPLETE INC INC AUTO&AUTO DIFRNTL WBC URNLS DIP 13745 [facility] 2 [facility] STICK/TAB INC INC LET REAGENT AUTO MICROSCOP Y CULTURE 45436 [facility] [place] BACTERIAL 2 [facility] INC INC QUANTTATI VE COLONY COUNT URINE URINE 62205 [facility] [place] 2 [facility] TEST INC INC VISUAL COLOR CMPRSN METHS THROMBOPL 93788 COMBINED COMBINED ASTIN 2 PHYSICIAN PHYSICIAN TIME S LA S LA PARTIAL PLASMA/WH OLE BLOOD CULTURE 60710 COMBINED COMBINED BACTERIAL 2 PHYSICIAN PHYSICIAN S LA S LA [place]TTAT[place] [address] COMBINED COMBINED AMYLASE 2 PHYSICIAN PHYSICIAN S LA S LA COMPREHEN 91238 COMBINED COMBINED SIVE 2 PHYSICIAN PHYSIC[place] [address] LAB TOI LAB TOI LIPASE 2 [facility]INGS PROTHROMB 77571 FAMILY FAMILY IN TIME 2 CARE CARPENTER ASSISTANT INSTALLER ASSOCIATE S S URNLS DIP 16805 FAMILY FAMILY 2 CARE CARE STICK/TAB ASSOCIATE ASSOCIATE LET RGNT S S NON-AUTO W/O MICRSCP BLOOD 14495 FAMILY FAMILY COUNT 2 CARE CARE COMPLETE ASSOCIATE ASSOCIATE AUTO&AUTO S S DIFRNTL WBC BLOOD 09806 ISAAK ISAAK COUNT 2 R H R H COMPLETE AUTO&AUTO DIFRNTL WBC IAADIADOO 58859 [facility] MULBERRY 2 WILL WILL STREPTOCO CCUS GROUP A IAADIADOO 87238 M[facility] MULBERRY 2 WILL WILL STREPTOCO CCUS GROUP A IADNA 64325 [facility] [place] NEISSERIA 1 [facility] INC CENTER GONORRHOE AE AMPLIFIED PROBE TQ CONTRACEP S4993 [facility] [place] TIVE 1 [facility] CENTER CONTROL IADNA 83261 [facility] [place] CHLAMYDIA 1 [facility] INC CENTER TRACHOMAT IS AMPLIFIED PROBE TQ URINE 78386 [facility] [place] 1 [facility] TEST CENTER CENTER VISUAL COLOR CMPRSN METHS Encounters Encounter Start End Date Code Location Performer Type Date PERIODIC 80646 [facility] PREVENTIV 5 5 PHYSICIAN E MED EST S GROUP PATIENT 18-39 YRS HOSPITAL [facility] - 4 4 [facility] OUTPATIEN INC T EMERGENCY 03675 [facility] 4 4 [facility] DEPARTMEN INC T VISIT LOW/MODER SEVERITY EMERGENCY 11627 ABDIAS AREVALO 4 4 DEPARTMEN T VISIT MODERATE SEVERITY PERIODIC 15779 [facility]PT HLTH DEPT PATIENT VIVIENNE VIVIENNE 18-39 YRS EMERGENCY 66563 [facility] 4 4 [facility] DEPARTMEN INC T VISIT MODERATE SEVERITY EMERGENCY 67826 ADOLFO MATA 4 4 [facility] DEPARTMEN T VISIT HIGH/URGE NT SEVERITY HOSPITAL [facility] - 4 4 [facility] OUTPATIEN INC HOSPITAL [facility] - 3 3 [facility] INPATIENT INC OFFICE 95875 REGINA TAPIA OUTPATIEN 3 3 CARMEN CARMEN T VISIT 15 MINUTES OFFICE 24657 REGINA TAPIA OUTPATIEN 3 3 CARMEN CARMEN T VISIT 15 MINUTES OFFICE 37151 REGINA TAPIA OUTPATIEN 3 3 CARMEN CARMEN T VISIT 15 MINUTES HOSPITAL [facility] - 3 3 [facility] OUTPATIEN INC T OFFICE 43214 REGINA TAPIA OUTPATIEN 3 3 CARMEN CARMEN T VISIT 15 MINUTES OFFICE 39577 REGINA TAPIA OUTPATIEN 3 3 CARMEN CARMEN T VISIT 15 MINUTES OFFICE 66880 REGINA TAPIA OUTPATIEN 3 3 CARMEN CARMEN T VISIT 15 MINUTES HOSPITAL [facility] - 3 3 [facility] OUTPATIEN INC T OFFICE 54130 REGINA TAPIA OUTPATIEN 3 3 CARMEN CARMEN T VISIT 15 MINUTES HOSPITAL [facility] - 3 3 [facility] IN[facility]IENT [facility] OFFICE 45286 REGINA TAPIA OUTPATIEN 3 3 CARMEN CARMEN T VISIT 5 MINUTES HOSPITAL [facility] - 3 3 [facility] OUTPATIEN [facility] - 3 3 [facility]PATIEN [facility] - 3 3 [facility] OUTPATIEN INC T OFFICE 36913 REGINA BOONEE OUTPATIEN 3 3 CARMEN CARMEN T VISIT 15 MINUTES OFFICE 35492 TAPIA TAPIA OUTPATIEN 3 3 CARMEN CARMEN T VISIT 15 MINUTES OFFICE 82582 FAMILY OUTPATIEN 3 3 CARE T VISIT ASSOCIATE 15 S MINUTES OFFICE 02153 REGINA TAPIA OUTPATIEN 3 3 CARMEN CARMEN T VISIT 15 MINUTES HOSPITAL [facility] - 3 3 [facility] OUTPATIEN INC T OFFICE 99944 TAPIA TAPIA OUTPATIEN 3 3 CARMEN CARMEN T VISIT 15 MINUTES OFFICE 82384 M[facility]Y MULBERRY OUTPATIEN 3 3 WILL WILL T VISIT 15 MINUTES OFFICE 09506 [facility] [place] OUTPATIEN 3 3 [facility] T VISIT CENTER CENTER 15 MINUTES EMERGENCY 76422 [facility] 3 3 EMERGENCY DEPARTMEN SERVICES T VISIT HIGH/URGE NT SEVERITY EMERGENCY 23175 [facility] 3 3 [facility] DEPARTMEN INC T VISIT MODERATE SEVERITY [facility]OSPITAL [facility] - 3 3 [facility] OUTPATIEN INC T OFFICE 19104 [facility] [place] OUTPATIEN 3 3 [facility] T VISIT CENTER CENTER 25 MINUTES EMERGENCY 08653 [facility] GOINS 3 3 EMERGENCY [facility] DEPARTMEN SERVICES T VISIT HIGH/URGE NT SEVERITY HOSPITAL [facility] - 3 3 [facility] OUTPATIEN INC T EMERGENCY 47632 [facility] 3 3 [facility] DEPARTMEN INC T VISIT LOW/MODER SEVERITY OFFICE 23029 ISAAK ISAAK OUTPATIEN 3 3 R H R H T VISIT 15 MINUTES PERIODIC 17110 [facility] [place] PREVENTIV 2 2 [facility] E MED EST CENTER CENTER PATIENT 18-39 YRS OFFICE 38886 ISAAK ISAAK OUTPATIEN 2 2 R H R H T VISIT 15 MINUTES HOSPITAL [facility] - 2 2 [facility] OUTPATIEN INC T EMERGENCY 36314 [facility] 2 2 [facility] DEPARTMEN INC T VISIT HIGH/URGE NT SEVERITY OFFICE 24550 FAMILY OUTPATIEN 2 2 CARE T VISIT ASSOCIATE 25 S MINUTES OFFICE 33171 FAMILY OUTPATIEN 2 2 CARE T VISIT ASSOCIATE 25 S MINUTES OFFICE 71731 M[facility]Y MULBERRY OUTPATIEN 2 2 WILL WILL T VISIT 15 MINUTES OFFICE 16150 [facility] MULBERRY OUTPATIEN 2 2 WILL WILL T VISIT 15 MINUTES OFFICE 04248 FAMILY ISAAK OUTPATIEN 2 2 CARE R H T VISIT ASSOCIATE 15 S MINUTES HOSPITAL [facility] - 1 1 [facility] OUTPATIEN INC T EMERGENCY 19650 [facility] BE[facility] BROWN BEATA 1 1 DEPARTMEN T VISIT HIGH/URGE NT SEVERITY EMERGENCY 49030 [facility] 1 1 [facility] DEPARTMEN INC T VISIT LIMITED/M INOR PROB OFFICE 26796 [facility] [place] OUTPATIEN 1 1 [facility] VIS[facility] CENTER 15 MINUTES PERIODIC 84967 [facility] [place] PREVENTIV 1 1 [facility] E MED EST CENTER CENTER PATIENT 12-17YRS
--- OUTSIDE RECORDS SUMMARY | 2017-08-27 17:26 | External Medical Summary Rpt | CCD ---
Demographics Preferred Language Croatian Marital Status Unknown Samaritan Affiliation Unknown Race Unknown Ethnic Group Unknown Author Author , ALMAS COBURN Address Unknown Phone [email or web address] Immunization Name Date Rout CVX Reac Dose Comm Prov Is Faci e tion ent ider Refu lity Give sed n DTaP 04-3 107 999 Hist H149 No H149 , UF 0-19 oric 99 al Info rmat ion - Sour ce Unsp ecif ied MMR 04-3 3 999 Hist H149 No H149 0-19 oric 99 al Info rmat ion - Sour ce Unsp ecif ied DTaP 11-0 107 999 Hist H149 No H149 , UF 3-19 oric 98 al Info rmat ion - Sour ce Unsp ecif ied MMR 11-0 3 999 Hist H149 No H149 3-19 oric 98 al Info rmat ion - Sour ce Unsp ecif ied Dru 11-0 2 999 Hist H149 No H149 o-OP 3-19 oric V 98 al Info rmat ion - Sour ce Unsp ecif ied
--- OUTSIDE RECORDS SUMMARY | 2017-08-27 17:26 | External Medical Summary Rpt | CCD ---
Demographics Preferred Language Kinyarwanda Marital Status Unknown Taoist Affiliation Unknown Race Unknown Ethnic Group Unknown Author Author , ALMAS COBURN Address Unknown Phone [email or web address] Immunization Name Date Rout CVX Reac Dose [...]
[2017-08-27] MEDS ORDERED: MEDROL 4MG. DOSE4 MG PO (18:31)
[2017-08-27] MEDS ORDERED: ZITHROMAX Z PA250 MG PO (18:31)
[2017-08-27] MEDS ORDERED: FLONASE 50 MCG16 GM (18:31)
--- NOTE | 2017-08-27 18:32 | [facility]gent Treatment Center Report ---
History of Present Issue Date/Time Seen by Provider 08/27/17 1820 Visit Reason Pt arrived:Walked Presenting Problem:C/O SORE THROAT AND BOTH EARS HURTING Location if Accident: Onset of symptoms date/time:/ or onset unknown for:MEDICAL HX UNKNOWN Have you (or family members/close friends) recently traveled outside the [place]? N If Yes, where/when: Have you had exposure to infectious disease within the past month? TB? Other? Specify: Patient states that she has not been feeling well for several days now that has continued to get worse. State that she has been having sore throat, sinus pain and pressure and pain in both ears State that she has taken some over the counter medication but not helped with her symptoms ALLERGIES Coded Allergies: No Known Drug Allergies (12/26/13) History Medical History General CAD? No Angina: No SC: No Hypertension? No Hyperlipidemia? No CHF? No DVT? No PE? No COPD? No Asthma? No Anemia? No GERD? No Gastric ulcers? No GI Bleed? No Hernia? No Thyroid Problems? No Hypothyroidism? No CVA? No Seizures? No Diabetes? No Renal Insuffiency? No UTI? No Stones? No BPH? No GB Disease: No Nephritic Syndrome? No Asplenia? No Hepatitis? No Sickle Cell Disease? No Arthritis? No Migraines? No Cataracts? No Glaucoma? No MRSA? No HIV? No TB? No Anxiety? No Depression? No Cancer? No More? No Immunization HX DT/Tetanus 5-10 YRS Flu THISFLUSEA Pneumonia REFUSES Surgical Hx Previous Surgery?Y MYRINGOTOMY WITH TUBES Social History Smoking Hx Smoker: Current Every Day Smoker Tobacco: Yes Type Cigarettes Alcohol Alcohol: No Review of Systems All Other Systems Reviewed and Negative Constitutional fever ENT ear pain, nose congestion, throat pain. Physical Exam Vital Signs Vital Signs Date Time Temp Pulse Resp B/P Pulse O2 O2 Flow FiO2 Ox Delivery Rate 08/27 1801 98.4 68 20 104/69 98 General Appearance Patient appears ill, pale in color with cheeks flush Ear, Nose, Throat sinus pain/drainage, nasal congestion, Throat red, irritated drainage noted tenderness maxillary sinuses with yellowish green drainage Respiratory Status Yes: trachea midline, chest symmetrical, non tender chest. No: respiratory distress. Lung Sounds bilateral: normal breath sounds, lungs clear. Cardiovascular normal exam, regular rate/rhythm Neurologic alert, normal exam, oriented x 3 Medical Decision Making LABS/Meds/Orders Pt receiving controlled substance in ED? No Results/Orders Laboratory Tests 08/27/178: Group A Strep Screen NOT DETECTED Orders Procedure Date/time Status [facility] STREP SCREEN 08/27 1758 Complete Departure Departure Time of Disposition 1828 Disposition DC Home or Self Care(routine) Clinical Impression Primary Impression: Upper respiratory infection Qualifiers: URI type: unspecified URI Qualified Code: J06.9 - Acute upper respiratory infection, unspecified Condition STABLE Referrals Clarence Duarte MD (Family): 2 Days-Call Office if no improvement Patient Instructions DI for Ear Pain-Adult, Sore Throat Additional Instructions * Monitor Temp. Tylenol and/or Ibuprofen as needed. ER if fever is no less than 101 despite alternating Tylenol and Ibuprofen * Encourage fluids, water, Gatorade, powerade, pedialyte if /toddler/or child * Warm salt water gargles for throat irritation *Warm fluids *Sore throat lozenges *Sleep elevated *humidifier or vaporizer Lots of rest Increase fluids, water, Gatorade, powerade Discharge Counseling Counseled pt/family regarding diagnosis, test results, medications/RX, home care, follow up needs Prescriptions Current Visit Scripts Azithromycin (Zithromycin (Z-BRITTNEE) 250MG Tab) 250 MG PO DAILY #6 TAB TAKE TWO (2) TABLETS ON DAY 1, THEN ONE (1) TABLET DAY #2 THRU #5 Fluticasone Propionate (Flonase 50 Mcg Nasal [place]) 2 SPRAY NA DAILY #1 BOT Methylprednisolone (Medrol Dose [place]) 4 MG PO UD #1 BRITTNEE TAKE DIRECTED ON PACKAGING at 1832
[2017-08-27 18:34] VITALS: BP 104/69
== END 2017-08-27 18:35 | disposition home or self-care (01) ==
LOC: UTC 17:15
DX: J06.9 Acute upper respiratory infection, unspecified (principal); F17.210 Nicotine dependence, cigarettes, uncomplicated